=== PATIENT | female | born 1945 | race Caucasian/White ===

== ENCOUNTER → 2018-08-05 12:36 | Outpatient (CLI) | payer OTHER, SELFPAY ==
--- NOTE | 2018-08-05 | DI.MG.S_ITS ---
BILATERAL DIGITAL SCREENING MAMMOGRAM 3D/2D WITH CAD: 08/05/2018 CLINICAL: Routine screening. Family history of breast cancer. Comparison is made to exams dated: 06/25/2017 mammogram, 12/24/2014 mammogram, and 10/29/2013 mammogram - [facility]. The tissue of both breasts is heterogeneously dense. This may lower the sensitivity of mammography. Current study was also evaluated with a Computer Aided Detection (CAD) system. There are benign calcifications in both breasts. No significant masses, calcifications, or other findings are seen in either breast. There has been no significant interval change. IMPRESSION: There is no mammographic evidence of malignancy. A 1 year screening mammogram is recommended.(08/06/2019) This exam was interpreted at Station ID: [id number]. NOTE: For mammograms, a report in lay terms will be sent to the patient. Approximately 15% of breast malignancies will not be visualized mammographically. In the management of a palpable breast mass, a negative mammogram must not discourage biopsy of a clinically suspicious lesion. Electronically Signed By: Kathy ríos/neyda:08/05/2018 13:52:41 letter sent: Normal Exam ACR BI-RADS Category 2: Benign Finding(s) 3342F
== END ==
PROVIDERS: Visit Provider Physician Assistant
DX: Z12.31 Encounter for screening mammogram for malignant neoplasm of breast (principal); Z80.3 Family history of malignant neoplasm of breast
CPT/HCPCS: 77063; 77067

== ENCOUNTER → 2018-12-30 13:04 | Outpatient (CLI) | payer OTHER, SELFPAY ==
--- NOTE | 2018-12-30 | DI.CT.S_ITS ---
PROCEDURE: CT CHEST HIGH RESOLUTION INDICATIONS: INTERSTITIAL LUNG DISEASE TECHNIQUE: Noncontrast 1.0 and 5.0 mm thick contiguous axial sections from the pulmonary apex to the posterior costophrenic angles, with 7 mm thick coronal and sagittal MIP reformats. 1 mm thick dynamic expiratory images acquired through the upper, mid, and lower lungs. 1.0 mm thick axial sections acquired from the josiane to the posterior costophrenic angles in the prone end-inspiration position. For radiation dose reduction, the following was used: automated exposure control, adjustment of mA and/or kV according to patient size. COMPARISON: [facility], CT, CHEST/ABD/PEL WITHOUT CONTRAST, 12/08/2014, 10:37. [facility], CT, THORAX WITHOUT CONTRAST, 05/21/2013, 11:47. [facility], CR, CHEST 2 VIEW, 05/01/2013, 13:44. FINDINGS: Image quality: Excellent. Lungs: The pattern of severe emphysematous change through the lung parenchyma comprises pulmonary hyperexpansion and multiple blebs and bullae are highly worsened over time with reference to the prior to chest CT studies. The degree of groundglass alveolitis pattern within the lung parenchyma appears slightly less pronounced than on the comparison study from October 2015. There is, however, a persistent mild alveolitis pattern interspersed amongst the areas of emphysematous change, indicating a component of active lung disease likely is present over time. A pulmonary mass lesion is not seen. Bronchiectasis is not identified. Chronic bronchitis as indicated by mild prominence of the soft tissues along the borders of the bronchi is again seen. Pleura: No pleural effusions or pneumothorax. Mediastinum: Heart size is normal. No pericardial effusion. Thoracic aorta and central pulmonary arteries are normal in size. Esophagus is normal in caliber. Bones and chest wall: No suspicious bony lesions. No vertebral body compression fractures. Abdomen: Visualized upper abdominal solid organs and bowel loops appear normal. IMPRESSION: Mild interval worsening of extensive and severe emphysematous change which is comprised of both centrilobular emphysema and emphysematous blebs and bullae, with reference to the most recent comparison chest CT from 12/08/14. A generalized pattern of mild alveolar prominence is also superimposed, but slightly less pronounced than on the comparison study. 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 A pulmonary malignancy, however is not found. Chronic bronchitis without identified bronchiectasis appears present. The lung disease is severe and slowly progressive. Dictated by: Cleveland Smith M.D. on 12/30/2018 at 15:59 Approved by: Cleveland Smith M.D. on 12/30/2018 at 16:06
== END ==
PROVIDERS: Visit Provider Internal Medicine Critical Care Medicine
DX: J84.9 Interstitial pulmonary disease, unspecified (principal); J43.2 Centrilobular emphysema
CPT/HCPCS: 71250

== ENCOUNTER → 2019-08-14 10:52 | Outpatient (CLI) | payer OTHER, SELFPAY ==
--- NOTE | 2019-08-15 16:00 | PM.PFT.1 ---
Pulmonary Function Test Referral & Results Date Patient Seen: 08/14/19 Requesting provider: Naina Wade Results: The spirometry demonstrates an FVC of 2.50 L which is 90% of predicted. The FEV1 was measured at 1.57 L which is 76% of predicted. The FEV1/FVC ratio was 63 which is 84% of predicted. Following the administration of bronchodilator there was a 10% improvement in FEF 25-75% but otherwise no notable change. Lung volumes show an SVC of 2.82 L which is 104% of predicted. The diffusing capacity was measured at 3.43 which is 14% of predicted. No hemoglobin value was provided, so no correction for potential anemia could be made, if appropriate. The maximum voluntary ventilation was reduced Interpretation: This study demonstrates mild obstructive lung disease with some limited evidence of benefit following bronchodilator, particularly small airway flow based on improvement although minimal in FEF 25-75% There is a very severe reduction in diffusing capacity suggesting very significant disease at the capillary alveolar level to the point where patients likely hypoxic at times on room air Compared to PFTs performed in March 2017, current study is essentially unchanged
== END ==
PROVIDERS: Family Provider Physician Assistant; PCP Physician Assistant; Visit Provider Internal Medicine Critical Care Medicine
DX: J43.2 Centrilobular emphysema (principal); J98.8 Other specified respiratory disorders
CPT/HCPCS: 94060; 94726; 94729

== ENCOUNTER → 2019-08-21 11:26 | Outpatient (CLI) | payer OTHER, SELFPAY ==
--- NOTE | 2019-08-21 | DI.MG.S_ITS ---
BILATERAL DIGITAL SCREENING MAMMOGRAM 3D/2D WITH CAD: 08/21/2019 CLINICAL: Routine screening. Personal history of breast cancer. Comparison is made to exams dated: 08/05/2018 mammogram, 06/25/2017 mammogram, 12/24/2014 mammogram, and 10/29/2013 mammogram - [facility]. The tissue of both breasts is heterogeneously dense. This may lower the sensitivity of mammography. Current study was also evaluated with a Computer Aided Detection (CAD) system. There are benign post operative findings in the right breast. No significant masses, calcifications, or other findings are seen in either breast. There has been no significant interval change. IMPRESSION: There is no mammographic evidence of malignancy. A 1 year screening mammogram is recommended. This exam was interpreted at Station ID: [id number]. NOTE: For mammograms, a report in lay terms will be sent to the patient. Approximately 15% of breast malignancies will not be visualized mammographically. In the management of a palpable breast mass, a negative mammogram must not discourage biopsy of a clinically suspicious lesion. Electronically Signed By: Darrion palacios/neyda:08/21/2019 17:05:27 letter sent: Normal Exam ACR BI-RADS Category 2: Benign Finding(s) 3342F
== END ==
PROVIDERS: Family Provider Physician Assistant; PCP Physician Assistant; Visit Provider Physician Assistant
DX: Z12.31 Encounter for screening mammogram for malignant neoplasm of breast (principal); Z85.3 Personal history of malignant neoplasm of breast
CPT/HCPCS: 77063; 77067

== ENCOUNTER → 2019-10-23 19:48 | Outpatient (ROUT) | payer OTHER, SELFPAY ==
[2019-10-23 20:06] LABS: Add Manual Diff / Slide Review NO; Basophils Absolute Auto 100 /uL (0-100); Eosinophils Absolute Auto 100 /uL (0-450); Eosinophils Percent Auto 1.6 % (2-4); Hematocrit 37.5 % (36-46); Hemoglobin 12.7 g/dL (12.0-16.0); Lymphocytes Absolute Auto 800 /uL (1100-4500); Lymphocytes Percent Auto 13.4 % (25-40); Mean Corpuscular Hemoglobin 32.1 PG (26-34); Mean Corpuscular Volume 94.5 fL (80-100); Monocytes Absolute Auto 500 /uL (0-900); Monocytes Percent Auto 8.7 % (3-14); Neutrophils Absolute Auto 4600 /uL (1500-7000); Neutrophils Percent Auto 75.3 % (50-75); Platelet Count 255 X10^3/uL (150-400); Red Blood Cell Count 3.96 X10^6/uL (4.0-5.2); Red Cell Distribution Width 12.2 % (11.6-14.8); White Blood Cell Count 6.1 X10^3/uL (4.5-11.0)
[2019-10-23 20:12] LABS: Alanine Aminotransferase 12 IU/L (<35); Albumin 3.9 g/dL (3.5-5.0); Albumin Globulin Ratio 1.3 (1.0-2.8); Alkaline Phosphatase 56 U/L (38-126); Aspartate Aminotransferase 26 IU/L (14-36); Bilirubin Total 0.6 mg/dL (0.2-1.3); Blood Urea Nitrogen 14 mg/dL (7-17); Calcium 9.7 mg/dL (8.4-10.2); Carbon Dioxide 36 mmol/L (22-32); Chloride 98 mmol/L (98-107); Cholesterol 180 mg/dL (140-199); Estimated Glomerular Filt Rate > 60.0 mL/min (>60); Globulin 3.1 g/dL (1.7-4.1); Glucose 133 mg/dL (80-110); HDL Cholesterol 91 mg/dL (40-60); HEMOLYSIS < 15 (0-50); LDL Cholesterol Calculated 80 mg/dL (<100); Potassium 4.4 mmol/L (3.4-5.1); Sodium 138 mmol/L (137-145); Triglycerides 44 mg/dL (35-150)
[2019-10-23 20:27] LABS: Vitamin D 25 Hydroxy (D3) 37.5 ng/mL (30.0-100.0)
== END ==
PROVIDERS: Family Provider Physician Assistant; PCP Physician Assistant; Visit Provider Physician Assistant
DX: I27.0 Primary pulmonary hypertension (principal); J84.9 Interstitial pulmonary disease, unspecified; E03.9 Hypothyroidism, unspecified; E78.2 Mixed hyperlipidemia; E55.9 Vitamin D deficiency, unspecified; M81.0 Age-related osteoporosis without current pathological fracture
CPT/HCPCS: 80053; 80061; 82306; 84443; 85025

== ENCOUNTER → 2019-10-27 12:59 | Outpatient (CLI) | payer OTHER, SELFPAY | PROVIDERS: Family Provider Physician Assistant; PCP Physician Assistant; Visit Provider Physician Assistant | DX: M81.0 Age-related osteoporosis without current pathological fracture (principal); Z78.0 Asymptomatic menopausal state; E07.9 Disorder of thyroid, unspecified; Z85.3 Personal history of malignant neoplasm of breast; Z82.62 Family history of osteoporosis; Z87.891 Personal history of nicotine dependence | CPT/HCPCS: 77080 ==

== ENCOUNTER → 2020-01-09 12:50 | Outpatient (CLI) | payer MEDICARE, SELFPAY ==
[2020-01-09 13:44] LABS: Alanine Aminotransferase 13 IU/L (<35); Albumin 4.1 g/dL (3.5-5.0); Albumin Globulin Ratio 1.1 (1.0-2.8); Alkaline Phosphatase 63 U/L (38-126); Aspartate Aminotransferase 34 IU/L (14-36); Bilirubin Total 0.5 mg/dL (0.2-1.3); Blood Urea Nitrogen 10 mg/dL (7-17); Calcium 9.7 mg/dL (8.4-10.2); Carbon Dioxide 35 mmol/L (22-32); Chloride 98 mmol/L (98-107); Estimated Glomerular Filt Rate > 60.0 mL/min (>60); Globulin 3.6 g/dL (1.7-4.1); Glucose 110 mg/dL (80-110); HEMOLYSIS < 15 (0-50); Potassium 4.1 mmol/L (3.4-5.1); Sodium 139 mmol/L (137-145); Total Protein 7.7 g/dL (6.3-8.2)
== END ==
PROVIDERS: Family Provider Physician Assistant; PCP Physician Assistant; Referring Provider Physician Assistant; Visit Provider Physician Assistant
DX: M81.0 Age-related osteoporosis without current pathological fracture (principal)
CPT/HCPCS: 36415; 80053

== ENCOUNTER → 2020-07-11 09:55 | Outpatient (CLI) | payer MEDICARE, SELFPAY ==
[2020-07-13 01:41] LABS: COVID19 Sendout Not Detected (Not Detected)
== END ==
PROVIDERS: Family Provider Physician Assistant; PCP Physician Assistant; Visit Provider Physician Assistant
DX: R59.0 Localized enlarged lymph nodes (principal); R53.83 Other fatigue; Z11.59 Encounter for screening for other viral diseases
CPT/HCPCS: 87635

== ENCOUNTER → 2021-02-03 14:54 | Outpatient (ROUT) | payer OTHER, SELFPAY ==
[2021-02-03 16:03] LABS: Add Manual Diff / Slide Review NO; Basophils Absolute Auto 100 /uL (0-100); Eosinophils Absolute Auto 100 /uL (0-450); Eosinophils Percent Auto 2.2 % (2-4); Hematocrit 37.9 % (36-46); Hemoglobin 12.6 g/dL (12.0-16.0); Lymphocytes Absolute Auto 800 /uL (1100-4500); Lymphocytes Percent Auto 15.3 % (25-40); Mean Corpuscular HGB Conc 33.1 % (30-36); Mean Corpuscular Hemoglobin 31.7 PG (26-34); Mean Corpuscular Volume 95.5 fL (80-100); Monocytes Absolute Auto 400 /uL (0-900); Monocytes Percent Auto 6.8 % (3-14); Neutrophils Absolute Auto 4000 /uL (1500-7000); Neutrophils Percent Auto 74.7 % (50-75); Platelet Count 239 X10^3/uL (150-400); Red Blood Cell Count 3.97 X10^6/uL (4.0-5.2); Red Cell Distribution Width 12.2 % (11.6-14.8); White Blood Cell Count 5.3 X10^3/uL (4.5-11.0)
[2021-02-03 16:17] LABS: Alanine Aminotransferase 12 IU/L (<35); Albumin 3.9 g/dL (3.5-5.0); Albumin Globulin Ratio 1.3 (1.0-2.8); Alkaline Phosphatase 56 U/L (38-126); Aspartate Aminotransferase 26 IU/L (14-36); BUN Creatinine Ratio 17.3 (6-22); Bilirubin Total 0.5 mg/dL (0.2-1.3); Blood Urea Nitrogen 9 mg/dL (7-17); Calcium 9.6 mg/dL (8.4-10.2); Carbon Dioxide 34 mmol/L (22-32); Chloride 98 mmol/L (98-107); Cholesterol 175 mg/dL (140-199); Estimated Glomerular Filt Rate > 60.0 mL/min (>60); Globulin 2.9 g/dL (1.7-4.1); Glucose 171 mg/dL (80-110); HDL Cholesterol 99 mg/dL (40-60); HEMOLYSIS < 15 (0-50); LDL Cholesterol Calculated 66 mg/dL (<100); Potassium 4.2 mmol/L (3.4-5.1); Sodium 139 mmol/L (137-145); Total Protein 6.8 g/dL (6.3-8.2); Triglycerides 50 mg/dL (35-150)
[2021-02-03 16:43] LABS: TSH w/ Reflex to FT4 0.43 uIU/mL (0.47-4.68)
[2021-02-03 19:56] LABS: Free T4, Direct Thyroxine 1.85 ng/dL (0.78-2.19)
[2021-02-04 10:18] LABS: Hemoglobin A1C% w Est Avg Glu 5.3 % (4.0-6.0)
== END ==
PROVIDERS: Family Provider Physician Assistant; PCP Physician Assistant; Visit Provider Physician Assistant
DX: J44.9 Chronic obstructive pulmonary disease, unspecified (principal); E03.9 Hypothyroidism, unspecified; I27.0 Primary pulmonary hypertension; M81.0 Age-related osteoporosis without current pathological fracture; E78.2 Mixed hyperlipidemia
CPT/HCPCS: 80053; 80061; 82306; 83036; 84439; 84443; 85025

== ENCOUNTER 2021-12-19 10:58 | Emergency (ER) | payer OTHER, SELFPAY ==
[2021-12-19] VITALS (7 sets, daily range): BP systolic 120–184; BP diastolic 60–88; PULSE 95–101; TEMP 37.1; O2SAT 95–98; BMI 19.5
--- NOTE | 2021-12-19 12:08 | ED.SOB ---
HPI - SOB/Dyspnea General Chief Complaint: Shortness of Breath/Dyspnea Stated Complaint: copd Time Seen by Provider: 12/19/21 12:08 Source: patient Mode of arrival: EMS Limitations: no limitations History of Present Illness HPI Narrative: This is a pleasant 76-year-old female with history of COPD/emphysema although she follows with Pulmonary 3 you do have an [place] and is not on any inhalers and is on sildenafil and levothyroxine and had Lasix 20 mg and potassium chloride started 2 weeks ago. She is not familiar with a history of pulmonary hypertension but suspect that she has this. She is on nasal cannula O2 at 6 L with her constant tater 247. She has had increasing sensation of weakness, shortness of breath and swelling in her lower extremities which is new. She has had nausea for the past week and some upper thoracic back discomfort with exertion. Patient states she feels more short of breath when she exerts herself as well. She has had orthopnea chronically but it has been worsened lately. She has had some abdominal discomfort the past week but that has alleviated. She has had nausea but no vomiting. She has had some mild constipation but but having bowel movements. No new urinary changes. She noticed increasing swelling in her extremities a week ago Sunday which she has not had in the past. She did note she was at pulmonary rehab and exercising and got lightheaded at her last visit a week ago Sunday. Patient states she has had a polyp removed from her about 12 years ago. She quit smoking tobacco, no alcohol or illicit. She lives independently. She is accompanied by her friend who is her DPOA. She also arrives with her pulsed form which is full code unless she has a terminal diagnosis which was filled out with her pediatrics hospitalist Dr. Shipley from [facility]. Related Data Previous Rx's Medication Instructions Recorded furosemide 20 mg tablet (Lasix) 20 mg PO DAILY #3 tab 12/19/21 Allergies Allergy/AdvReac Type Severity Reaction Status Date / Time Penicillins Allergy Unknown Verified 07/11/20 10:48 Review of Systems Review of Systems ROS Unobtainable: All systems reviewed & are unremarkable except as noted in HPI and below Patient History Social History Smoking Status: Former smoker Smoking Status: Former smoker alcohol intake frequency: 0-2 drinks per day Substance Use Type: does not use Exam Narrative Exam Narrative: GENERAL: Alert and oriented x three, thin elderly female in mild distress. HEENT: Head normocephalic, atraumatic, EOMI, pupils reactive, face symmetric, moist mucous membranes NECK: Supple, full range of motion CARDIOVASCULAR: Regular rate and rhythm without murmurs, rubs or gallops. Mild JVD bilaterally. RESPIRATORY: Breath sounds decreased slightly left in comparison to right. No wheezes or rhonchi. Positive for crackles in the left anterior and posterior base and mid lung. Patient does not have any tachypnea. She speaks in full sentences. ABDOMEN: Soft, nontender. Nondistended. Normoactive bowel sounds all 4 quadrants. No guarding or rebound, rigidity, no mass : No CVA tenderness EXTREMITIES: Normal range of motion, no clubbing. 1+ bilateral lower extremity pedal and ankle edema. Neurovascularly intact. NEUROLOGICAL: Cranial nerves II through XII grossly intact. Moving all extremities SKIN: Warm, dry, no petechiae, no rashes or lesions. Initial Vital Signs Initial Vital Signs: Vital Signs Temperature 98.7 F 12/19/21 11:27 Pulse Rate 101 H 12/19/21 11:27 Blood Pressure 129/63 12/19/21 11:27 Course Orders Ordered: ED Orders 12/19/21 11:19 RT Consult Eval and Treat NOW 12/19/21 11:51 EKG-12 Lead Stat 12/19/21 12:17 COVID19 -Nasal swab/Pre-Proc Stat 12/19/21 12:28 Consult to Respiratory Therapy Evaluate & Treat 12/19/21 12:29 XR chest 1V Stat 12/19/21 12:41 Complete Blood Count AUTO DIFF Stat Comprehensive Metabolic Panel Stat Magnesium Stat NT-proBNP (BNP-Adult 18+) Stat Troponin & CK Cardiac Panel Stat 12/19/21 12:44 PTT [Partial Thromboplastin Time] Stat Prothrombin Time INR Stat 12/19/21 13:06 Lactate (Lactic Acid) Stat 12/19/21 13:19 CT chest w con Stat Discontinued Medications Furosemide (Furosemide 40 Mg/4 Ml Vial) 40 mg IV NOW ONE Stop: 12/19/21 12:29 Last Admin: 12/19/21 13:19 Dose: 40 mg Documented by: TOM Reevaluation(s) Reevaluation #1: Patient had urine output and is feeling improved and her breathing. We reviewed her labs and CT findings. I think she would benefit from thoracentesis from a diagnostic and therapeutic perspective. She is not in extremis at this point and discussed that they are happy to see her to perform this tomorrow as an outpatient or weakness her inpatient patient prefers to return home. I also spoke with Oncology she has concerning changes for malignancy and they are happy to see her as well. Patient and her friend at bedside who is also her DPOA are both aware of the current plan and if there is any road blocks tomorrow they can re-presented to the emergency department. Consultations Consultation #1: Dr. Recinos, no available to for thoracentesis today but they can do 1 outpatient or inpatient tomorrow at 1:30 p.m. Consultation #2: Dr. Colon with oncology is happy to see the patient. We discussed that patient is currently set up to have thoracentesis tomorrow with cytology. Vital Signs Vital signs: Vital Signs - 8 hr 12/19/21 11:27 12/19/21 14:48 12/19/21 14:49 Temperature 98.7 F Pulse Rate 101 H 101 H 99 H Blood Pressure 129/63 184/88 H Pulse Oximetry 95 98 12/19/21 14:54 12/19/21 15:00 12/19/21 15:30 Temperature Pulse Rate 99 H 97 H 99 H Blood Pressure 121/66 122/60 137/63 Pulse Oximetry 98 97 97 12/19/21 16:00 Temperature Pulse Rate 95 H Blood Pressure 120/64 Pulse Oximetry 97 MDM - SOB/Dyspnea Lab Data Result diagrams: 12/19/21 12:41 12/19/21 12:41 Labs: Lab Results 12/19/21 12/19/21 12/19/21 Range/Units 12:17 12:41 12:41 WBC 9.3 (4.5-11.0) X10^3/uL RBC 4.17 (4.0-5.2) X10^6/uL Hgb 13.0 (12.0-16.0) g/dL Hct 38.5 (36-46) % MCV 92.3 (80-100) fL MCH 31.1 (26-34) PG MCHC 33.6 (30-36) % RDW 12.4 (11.6-14.8) % Plt Count 328 (150-400) X10^3/uL Neut % (Auto) 88.0 H (50-75) % Lymph % (Auto) 3.3 L (25-40) % Hendricks % (Auto) 7.9 (3-14) % Eos % (Auto) 0.3 L (2-4) % Baso % (Auto) 0.5 (0-2) % Neut # (Auto) 8200 H (3191-5794) /uL Lymph # (Auto) 300 L (3926-5097) /uL Hendricks # (Auto) 700 (0-900) /uL Eos # (Auto) 0 (0-450) /uL Baso # (Auto) 0 (0-100) /uL PT (10.1-12.7) SECONDS INR (0.9-1.3) APTT (26.4-36.2) SECONDS Sodium (137-145) mmol/L Potassium (3.4-5.1) mmol/L Chloride (98-107) mmol/L Carbon Dioxide (22-32) mmol/L BUN (7-17) mg/dL Creatinine (0.52-1.04) mg/dL Estimated GFR (>60) mL/min BUN/Creatinine Ratio (6-22) Glucose (80-110) mg/dL Lactate (0.7-2.1) mmol/L Calcium (8.4-10.2) mg/dL Magnesium 1.9 (1.6-2.3) mg/dL Total Bilirubin (0.2-1.3) mg/dL AST (14-36) IU/L ALT (<35) IU/L Alkaline Phosphatase (38-126) U/L Total Creatine Kinase 41 (30-135) U/L CK-MB (CK-2) TNP CK-MB (CK-2) Rel Index TNP Troponin I < 0.012 (0.01-0.034) ng/mL NT-Pro-B Natriuret Pep 140 (<450) pg/mL Total Protein (6.3-8.2) g/dL Albumin (3.5-5.0) g/dL Globulin (1.7-4.1) g/dL Albumin/Globulin Ratio (1.0-2.8) SARS-CoV-2 (PCR) Negative (Negative) 12/19/21 12/19/21 12/19/21 Range/Units 12:41 12:44 13:06 WBC (4.5-11.0) X10^3/uL RBC (4.0-5.2) X10^6/uL Hgb (12.0-16.0) g/dL Hct (36-46) % MCV (80-100) fL MCH (26-34) PG MCHC (30-36) % RDW (11.6-14.8) % Plt Count (150-400) X10^3/uL Neut % (Auto) (50-75) % Lymph % (Auto) (25-40) % Hendricks % (Auto) (3-14) % Eos % (Auto) (2-4) % Baso % (Auto) (0-2) % Neut # (Auto) (3088-1685) /uL Lymph # (Auto) (1314-9792) /uL Hendricks # (Auto) (0-900) /uL Eos # (Auto) (0-450) /uL Baso # (Auto) (0-100) /uL PT 12.4 (10.1-12.7) SECONDS INR 1.1 (0.9-1.3) APTT 28 (26.4-36.2) SECONDS Sodium 134 L (137-145) mmol/L Potassium 4.5 (3.4-5.1) mmol/L Chloride 91 L (98-107) mmol/L Carbon Dioxide 41 H* (22-32) mmol/L BUN 12 (7-17) mg/dL Creatinine 0.38 L (0.52-1.04) mg/dL Estimated GFR > 60.0 (>60) mL/min BUN/Creatinine Ratio 31.6 H (6-22) Glucose 110 (80-110) mg/dL Lactate 1.3 (0.7-2.1) mmol/L Calcium 9.5 (8.4-10.2) mg/dL Magnesium (1.6-2.3) mg/dL Total Bilirubin 0.8 (0.2-1.3) mg/dL AST 35 (14-36) IU/L ALT 14 (<35) IU/L Alkaline Phosphatase 66 (38-126) U/L Total Creatine Kinase (30-135) U/L CK-MB (CK-2) CK-MB (CK-2) Rel Index Troponin I (0.01-0.034) ng/mL NT-Pro-B Natriuret Pep (<450) pg/mL Total Protein 7.6 (6.3-8.2) g/dL Albumin 3.7 (3.5-5.0) g/dL Globulin 3.9 (1.7-4.1) g/dL Albumin/Globulin Ratio 0.9 L (1.0-2.8) SARS-CoV-2 (PCR) (Negative) Imaging Data Chest x-ray: Radiologist's Impression: Launch?Image [address] [address] XRay Report Signed Patient: Amanda Murphy MR#: [id number] : 1945 Acct:[id number] Age/Sex: 76 / F Date of Service: 12/19/21 Loc: ED Accession Number: [id number] ?? Procedure: XR chest 1V Ordering Provider: Christy Garcia D.O. PROCEDURE:? XR CHEST 1V ? INDICATIONS:? SOB, swelling lower extremities, hx COPD/pulm htn ? TECHNIQUE:? One view of the chest was acquired.? ? COMPARISON:? [facility], , CHEST 2 VIEW, 05/01/2013, 13:44. ? FINDINGS:? ? Surgical changes and devices:? None.? ? Lungs and pleura:? Prominent lung volumes.? Fibrotic change.? Opacification of the right lower hemithorax.? Scattered opacity in the mid lung.? No pneumothorax seen.? Moderate right pleural effusion.? ? Mediastinum:? Mediastinal contours appear similar.? Heart size is within normal limits.? ? Bones and chest wall:? No suspicious bony lesions identified.? Scoliosis.? Overlying soft tissues appear unremarkable.? ? IMPRESSION:? Moderate right pleural effusion. ? Mild opacity in the right mid lung field. This could represent loculated effusion, pneumonia, or atelectasis.? ? Consider further evaluation with CT of the chest with IV contrast.? ? Dictated by: Rubens Perez M.D. on 12/19/2021 at 13:09 ? ? Approved by: Rubens Perez M.D. on 12/19/2021 at 13:15?? CT scan - chest: Radiologist's Impression: Launch?Image [address] [address] [address] Scan Report Signed Patient: Amanda Murphy MR#: [id number] : 1945 Acct:[id number] Age/Sex: 76 / F Date of Service: 12/19/21 Loc: ED Accession Number: [id number] ?? Procedure: CT chest w con Ordering Provider: Christy Garcia D.O. PROCEDURE:? CT CHEST W CON ? INDICATIONS:? pleural effusion, sob, swelling legs. ? TECHNIQUE:? After the administration of intravenous contrast, 5 mm thick sections acquired from the pulmonary apices to the posterior costophrenic angles.? 1 mm axial lung, 5 mm thick coronal and sagittal reformats and 7 mm axial MIP were acquired.? For radiation dose reduction, the following was used:? automated exposure control, adjustment of mA and/or kV according to patient size.? ? COMPARISON:? CT, CHEST/ABD/PEL WITHOUT CONTRAST, 12/08/2014, 10:37.? [facility], CT, CT CHEST HIGH RESOLUTION, 12/30/2018, 13:04.? [facility], CR, XR CHEST 1V, 12/19/2021, 12:42. ? FINDINGS:? Image quality:? Excellent.? ? Lungs and pleura:? Severe emphysematous changes are present throughout the lungs bilaterally.? The lungs are hyperexpanded with multiple areas of bleb and bulla lie demonstrating interval worsening since 2019. There is a moderate to large right pleural effusion with superimposed areas of enhancing soft tissue density both along the pleura as well as superimposed upon the effusion.? Several of these areas appear to be nodular in appearance.? Portions of the mediastinum are obscured secondary to infiltrating fluid. ?However, there does appear to be areas of underlying adenopathy with what appears to be a 2.0 cm subcarinal lymph node as well as a 1.4 cm right hilar lymph node.? No discrete endobronchial lesion is identified. ? Mediastinum:? Heart size is normal.? No pericardial effusion.? No mediastinal or hilar adenopathy by size criteria.? Thoracic aorta and central pulmonary arteries are normal in size.? Esophagus is normal in caliber.? No hiatal hernia.? ? Bones and chest wall:? No suspicious bony lesions.? No vertebral body compression fractures.? No axillary or supraclavicular adenopathy by size criteria.? Thyroid gland is not visualized .? ? Abdomen:? There are multiple low-attenuation enhancing hepatic masses the largest in the left lobe measuring 2.0 x 2.1 cm on series 2, image 53. Visualized upper abdominal solid organs appear normal.? Upper abdominal bowel loops are normal in caliber.? ? IMPRESSION:? ? Moderate to large right effusion with superimposed areas of enhancing soft tissue density.? While the latter could represent areas of airspace disease such as pneumonia and/or atelectasis, the somewhat nodular heterogeneously enhancing appearance raises concern for soft tissue masses secondary to malignancy.? In addition, hilar mediastinal adenopathy is present, raising concern for malignancy. ? ? Multiple incompletely visualized hepatic lesions as described above.? In conjunction with pulmonary findings, overall appearance is highly concerning for malignancy.? ? Dictated by: Annie Garcia M.D. on 12/19/2021 at 14:16 ? ? Approved by: Annie Garcia M.D. on 12/19/2021 at 14:37? ECG Data Attestation: I personally reviewed and interpreted this ECG as follows: Prior ECG tracings: not available for review Interpretation: Sinus rhythm rate of 94, OK 140 QRS of 76 and QTC of 435. No acute ST elevation or depression appreciated. No priors for comparison. MDM Narrative Medical decision making narrative: This is a pleasant 76-year-old female with history of COPD and suspected pulmonary hypertension as she is on sildenafil daily, Lasix, potassium. Patient's chest x-ray shows possible pleural effusion, her BNP is elevated but her troponin is negative, she does not appear to have infectious changes with her COVID swab. She is not requiring increasing oxygen above her normal requirements with her home O2 and her vitals are otherwise stable. CT chest was obtained with IV contrast and found to have a large pleural effusion with changes concerning for possible malignancy with mediastinal lymphadenopathy, possible soft tissue mass as well as potential lesions in the liver. This was all discussed with the patient. She has been set for outpatient thoracentesis tomorrow at 1:30 p.m. to have a diagnostic and therapeutic tap. She did have some relief with Lasix here and was instructed to take 3-in all days worth of Lasix. Return precautions were discussed. Case was also discussed with oncology was happy to follow with the patient. Discharge Plan Departure Patient Disposition: Home Clinical Impression: Pleural effusion, Liver masses, Mediastinal adenopathy Instructions: Pleural Effusion Activity Restrictions/Additional Instructions: Follow up tomorrow with diagnostic radiology for a ultrasound guided thoracentesis. Please check in by 1:10pm tomorrow and plan is for thoracentesis at 1:30pm tomorrow. This is a diagnostic therapeutic procedure to obtain more information about the fluid but also help your breathing. I spoke with oncology today they are happy to follow up with you and ask that you contact the office tomorrow to set up follow-up in the coming week. Your imaging shows a pleural effusion or fluid collection but also enlarged lymph nodes and areas concerning for possible mass your mediastinum, chest and liver. Please follow-up with oncology as well regarding these results and your primary care physician. Take two tablet so your lasix daily in the morning x 3 days then return to your normal dose. Please return for fevers new or worsening chest pain, shortness of breath, increasing swelling in your extremities or other new or concerning symptoms Prescriptions: New furosemide [Lasix] 20 mg tablet 20 mg PO DAILY Qty: 3 0RF Referrals: Elo Villeda PA-C [Primary Care Provider] - Cris Colon MD [Physician] -
--- NOTE | 2021-12-19 12:29 | DI.RAD.S_ITS ---
PROCEDURE: XR CHEST 1V INDICATIONS: SOB, swelling lower extremities, hx COPD/pulm htn TECHNIQUE: One view of the chest was acquired. COMPARISON: [facility], , CHEST 2 VIEW, 05/01/2013, 13:44. FINDINGS: Surgical changes and devices: None. Lungs and pleura: Prominent lung volumes. Fibrotic change. Opacification of the right lower hemithorax. Scattered opacity in the mid lung. No pneumothorax seen. Moderate right pleural effusion. Mediastinum: Mediastinal contours appear similar. Heart size is within normal limits. Bones and chest wall: No suspicious bony lesions identified. Scoliosis. Overlying soft tissues appear unremarkable. IMPRESSION: Moderate right pleural effusion. Mild opacity in the right mid lung field. This could represent loculated effusion, pneumonia, or atelectasis. Consider further evaluation with CT of the chest with IV contrast. Dictated by: Rubens Perez M.D. on 12/19/2021 at 13:09 Approved by: Rubens Perez M.D. on 12/19/2021 at 13:15
[2021-12-19 12:56] LABS: Add Manual Diff / Slide Review NO; Basophils Absolute Auto 0 /uL (0-100); Basophils Percent Auto 0.5 % (0-2); Eosinophils Absolute Auto 0 /uL (0-450); Eosinophils Percent Auto 0.3 % (2-4); Hematocrit 38.5 % (36-46); Lymphocytes Absolute Auto 300 /uL (1100-4500); Lymphocytes Percent Auto 3.3 % (25-40); Mean Corpuscular HGB Conc 33.6 % (30-36); Mean Corpuscular Hemoglobin 31.1 PG (26-34); Mean Corpuscular Volume 92.3 fL (80-100); Monocytes Absolute Auto 700 /uL (0-900); Monocytes Percent Auto 7.9 % (3-14); Neutrophils Absolute Auto 8200 /uL (1500-7000); Platelet Count 328 X10^3/uL (150-400); Red Blood Cell Count 4.17 X10^6/uL (4.0-5.2); Red Cell Distribution Width 12.4 % (11.6-14.8); White Blood Cell Count 9.3 X10^3/uL (4.5-11.0)
[2021-12-19 13:07] LABS: Alanine Aminotransferase 14 IU/L (<35); Albumin 3.7 g/dL (3.5-5.0); Albumin Globulin Ratio 0.9 (1.0-2.8); Alkaline Phosphatase 66 U/L (38-126); Aspartate Aminotransferase 35 IU/L (14-36); BUN Creatinine Ratio 31.6 (6-22); Bilirubin Total 0.8 mg/dL (0.2-1.3); Blood Urea Nitrogen 12 mg/dL (7-17); Calcium 9.5 mg/dL (8.4-10.2); Chloride 91 mmol/L (98-107); Creatine Kinase 41 U/L (30-135); Estimated Glomerular Filt Rate > 60.0 mL/min (>60); Globulin 3.9 g/dL (1.7-4.1); Glucose 110 mg/dL (80-110); Magnesium 1.9 mg/dL (1.6-2.3); Sodium 134 mmol/L (137-145); Total Protein 7.6 g/dL (6.3-8.2)
[2021-12-19 13:19] LABS: NT-proBNP (BNP-Adult 18+) 140 pg/mL (<450); Troponin I < 0.012 ng/mL (0.01-0.034)
[2021-12-19] MEDS: FUROSEMIDE 40 MG/4 ML VIAL IV (13:19)
--- NOTE | 2021-12-19 13:19 | DI.CT.S_ITS ---
PROCEDURE: CT CHEST W CON INDICATIONS: pleural effusion, sob, swelling legs. TECHNIQUE: After the administration of intravenous contrast, 5 mm thick sections acquired from the pulmonary apices to the posterior costophrenic angles. 1 mm axial lung, 5 mm thick coronal and sagittal reformats and 7 mm axial MIP were acquired. For radiation dose reduction, the following was used: automated exposure control, adjustment of mA and/or kV according to patient size. COMPARISON: CT, CHEST/ABD/PEL WITHOUT CONTRAST, 12/08/2014, 10:37. [facility], CT, CT CHEST HIGH RESOLUTION, 12/30/2018, 13:04. [facility], CR, XR CHEST 1V, 12/19/2021, 12:42. FINDINGS: Image quality: Excellent. Lungs and pleura: Severe emphysematous changes are present throughout the lungs bilaterally. The lungs are hyperexpanded with multiple areas of bleb and bulla lie demonstrating interval worsening since 2019. There is a moderate to large right pleural effusion with superimposed areas of enhancing soft tissue density both along the pleura as well as superimposed upon the effusion. Several of these areas appear to be nodular in appearance. Portions of the mediastinum are obscured secondary to infiltrating fluid. However, there does appear to be areas of underlying adenopathy with what appears to be a 2.0 cm subcarinal lymph node as well as a 1.4 cm right hilar lymph node. No discrete endobronchial lesion is identified. Mediastinum: Heart size is normal. No pericardial effusion. No mediastinal or hilar adenopathy by size criteria. Thoracic aorta and central pulmonary arteries are normal in size. Esophagus is normal in caliber. No hiatal hernia. Bones and chest wall: No suspicious bony lesions. No vertebral body compression fractures. No axillary or supraclavicular adenopathy by size criteria. Thyroid gland is not visualized . Abdomen: There are multiple low-attenuation enhancing hepatic masses the largest in the left lobe measuring 2.0 x 2.1 cm on series 2, image 53. Visualized upper abdominal solid organs appear normal. Upper abdominal bowel loops are normal in caliber. IMPRESSION: Moderate to large right effusion with superimposed areas of enhancing soft tissue density. While the latter could represent areas of airspace disease such as pneumonia and/or atelectasis, the somewhat nodular heterogeneously enhancing appearance raises concern for soft tissue masses secondary to malignancy. In addition, hilar mediastinal adenopathy is present, raising concern for malignancy. Multiple incompletely visualized hepatic lesions as described above. In conjunction with pulmonary findings, overall appearance is highly concerning for malignancy. Dictated by: Annie Garcia M.D. on 12/19/2021 at 14:16 Approved by: Annie Garcia M.D. on 12/19/2021 at 14:37
[2021-12-19 13:34] LABS: COVID19 -Nasal RAPID Negative (Negative)
[2021-12-19 13:38] LABS: HEMOLYSIS 90 (0-50)
[2021-12-19 13:41] LABS: Carbon Dioxide 41 mmol/L (22-32); Potassium 4.5 mmol/L (3.4-5.1)
[2021-12-19 13:41] LABS: Lactate (Lactic Acid) 1.3 mmol/L (0.7-2.1)
[2021-12-19 15:14] LABS: INR 1.1 (0.9-1.3); Prothrombin Time 12.4 SECONDS (10.1-12.7)
[2021-12-19 15:17] LABS: PTT Partial Thromboplastin Tim 28 SECONDS (26.4-36.2)
== END 2021-12-19 16:50 | disposition home or self-care (01) ==
PROVIDERS: Emergency Provider Emergency Medicine; Family Provider Physician Assistant; PCP Physician Assistant
DX: J90 Pleural effusion, not elsewhere classified (principal); R16.0 Hepatomegaly, not elsewhere classified; R59.0 Localized enlarged lymph nodes; Z87.891 Personal history of nicotine dependence; Z79.899 Other long term (current) drug therapy; Z20.822 Contact with and (suspected) exposure to COVID-19
CPT/HCPCS: 36415; 71045; 71260; 80053; 82550; 83605; 83735; 83880; 84484; 85025; 85610; 85730; 87635; 93005; 93010; 96374; 99284; 99285; C9803; J1940; Q9967

== ENCOUNTER → 2021-12-20 13:11 | Outpatient (CLI) | payer OTHER, SELFPAY ==
--- NOTE | 2021-12-20 | DI.US.S_ITS ---
PROCEDURE: US THORACENTESIS INDICATIONS: PLEURAL EFFUSION TECHNIQUE: The indications, alternatives, benefits, risks, and complications of the procedure were explained to the patient. Written informed consent was obtained and placed in the chart. The chest was examined sonographically, and an appropriate site was chosen for thoracentesis. The skin was prepared and draped in the usual sterile fashion, and 1% lidocaine was infiltrated from the skin down through the pleural surface. A 19-gauge catheter-covered needle was then introduced into the pleural space, the catheter was advanced and the needle was withdrawn, and thereafter pleural fluid was aspirated. The catheter was then removed and a dressing was applied. COMPARISON: [facility], CR, XR CHEST 1V, 12/20/2021, 13:49. [facility], CT, CT CHEST W CON, 12/19/2021, 14:03. FINDINGS: Access site: Right hemithorax. Needle: One-Step centesis catheter with introducer needle. Fluid volume and description: 1500 mL; bloody. Fluid sent for diagnostic testing: yes; per referring physician. Medications: 1% lidocaine for local anaesthesia. Complications: None; post-procedural chest radiograph is pending to assess for pneumothorax. IMPRESSION: Successful ultrasound-guided thoracentesis. Dictated by: Avtar Lopez M.D. on 12/20/2021 at 16:45 Approved by: Avtar Lopez M.D. on 12/20/2021 at 16:46
--- NOTE | 2021-12-20 | PATH_ITS ---
Note [facility] Accession Number: [id number] TESTS RESULT FLAG UNITS REF RANGE LAB Clinician Provided Cytology Information No. of containers..01 Other (Miscellaneous) Source: [A] 01 R PLEURAL EFFUSION DIAGNOSIS: [A] 01 R PLEURAL EFFUSION POSITIVE FOR MALIGNANT CELLS; SEE COMMENT. THIS INTERPRETATION INCLUDES EVALUATION OF A CELL BLOCK. COMMENT: A panel of immunostains will be performed to further characterize the malignant cells and potentially determine the primary site. Those results and the final diagnosis will be reported in an addendum. Pathologist ICD10: 01 J90 Signed out by: Kamilla Tompkins MD, Pathologist NPI- [id number] Performed by: Kal Jordan, Supervisor [employer] ([facility]) Gross description: 60 CC, RED, CLOUDY /LCS 12/21/2021 2328 Local FLAG LEGEND: L-Low Normal,H-High Normal,LL-Alert Low,HH-Alert High <-Panic Low,>-Panic High,A-Abnormal,AA-Critical Abnormal Performed at: 01 =[facility] [address], [place] [address] Efrain Mejia MD, Performed at: 01 [facility] [address], [place], [place] [id number] MD Efrain Mejia MD Phone: [phone]
--- NOTE | 2021-12-20 | DI.RAD.S_ITS ---
PROCEDURE: XR CHEST 1V INDICATIONS: post thoracentesis TECHNIQUE: One view of the chest was acquired. COMPARISON: [facility], CT, CT CHEST W CON, 12/19/2021, 14:03. [facility], CR, XR CHEST 1V, 12/19/2021, 12:42. FINDINGS: Surgical changes and devices: None. Lungs and pleura: No pneumothorax. Small residual right pneumothorax. Extensive interstitial thickening and pulmonary fibrosis. Mediastinum: Mediastinal contours appear normal. Heart size is normal. Bones and chest wall: No suspicious bony lesions. Overlying soft tissues appear unremarkable. Cirrhosis. IMPRESSION: No pneumothorax post thoracentesis. Dictated by: Avtar Lopez M.D. on 12/20/2021 at 14:07 Approved by: Avtar Lopez M.D. on 12/20/2021 at 14:09
[2021-12-20 14:32] LABS: Body Fluid Red Blood Cells 11020 /uL; Body Fluid Tot Nucleated Cells 843 /uL; Glucose Body Fluid 135 mg/dL; LDH Body Fluid 718 U/L; Total Protein Body Fluid 4.5 g/dL
[2021-12-20 14:45] LABS: pH Body Fluid 8 pH
[2021-12-20 14:55] LABS: Body Fluid Appearance SLIGHTLY CLOUDY; Body Fluid Clotted? NO CLOTS PRESENT; Body Fluid Color XANTHOCHROMIC; Eosinophils Body Fluid 0 %; Mononuclear WBC Body Fluid 79 %; Other Cells Body Fluid 7 %; Polynuclear WBC Body Fluid 14 %
== END ==
PROVIDERS: Family Provider Physician Assistant; PCP Physician Assistant; Referring Provider Emergency Medicine; Visit Provider Emergency Medicine
DX: J90 Pleural effusion, not elsewhere classified
CPT/HCPCS: 32555; 71045; 82945; 83615; 83986; 84157; 87070; 87075; 87205; 89051

== ENCOUNTER 2021-12-24 12:53 | Emergency (ER) | payer OTHER, SELFPAY ==
[2021-12-24] VITALS (15 sets, daily range): BP systolic 136–161; BP diastolic 62–78; PULSE 89–104; RESP 20–29; TEMP 36.6; O2SAT 93–100
--- NOTE | 2021-12-24 12:58 | DI.RAD.S_ITS ---
PROCEDURE: XR CHEST 1V INDICATIONS: chest pain TECHNIQUE: One view of the chest was acquired. COMPARISON: [facility], CR, XR CHEST 1V, 12/20/2021, 13:49. FINDINGS: Surgical changes and devices: None. Lungs and pleura: Diffuse chronic reticular changes noted throughout both lungs. There is obscuration right hemidiaphragm with blunting of the costophrenic angle. Underlying pulmonary infiltrate noted the right long as well with volume loss. Mediastinum: Mediastinal contours appear normal. Heart size is normal. Bones and chest wall: Generalized decrease in osseous mineralization noted. Convex right thoracic scoliosis present. IMPRESSION: 1. Right pleural effusion with right basilar atelectasis and or infiltrate, increased from the prior. 2. Diffuse underlying chronic fibrotic change involves both lungs Approved by: Adolfo Tyson M.D. on 12/24/2021 at 13:09
[2021-12-24 13:27] LABS: Add Manual Diff / Slide Review NO; Basophils Absolute Auto 0 /uL (0-100); Basophils Percent Auto 0.1 % (0-2); Eosinophils Absolute Auto 100 /uL (0-450); Eosinophils Percent Auto 0.7 % (2-4); Hematocrit 40.2 % (36-46); Hemoglobin 13.5 g/dL (12.0-16.0); Lymphocytes Absolute Auto 300 /uL (1100-4500); Lymphocytes Percent Auto 2.9 % (25-40); Mean Corpuscular HGB Conc 33.5 % (30-36); Mean Corpuscular Hemoglobin 30.8 PG (26-34); Mean Corpuscular Volume 91.8 fL (80-100); Monocytes Absolute Auto 900 /uL (0-900); Monocytes Percent Auto 8.4 % (3-14); Neutrophils Absolute Auto 9900 /uL (1500-7000); Neutrophils Percent Auto 87.9 % (50-75); Platelet Count 352 X10^3/uL (150-400); Red Blood Cell Count 4.38 X10^6/uL (4.0-5.2); Red Cell Distribution Width 12.5 % (11.6-14.8); White Blood Cell Count 11.2 X10^3/uL (4.5-11.0)
[2021-12-24 13:45] LABS: COVID19 -Nasal RAPID Negative (Negative)
--- NOTE | 2021-12-24 14:25 | ED.SOB ---
HPI - SOB/Dyspnea General Chief Complaint: Weakness Stated Complaint: failure to thrive Time Seen by Provider: 12/24/21 13:14 Source: patient and EMS Mode of arrival: EMS Limitations: no limitations History of Present Illness HPI Narrative: Patient is a 76-year-old female with history of COPD emphysema, suspected pulmonary hypertension on sildenafil, followed by pulmonology at [facility] recently found to have a large right-sided pleural effusion. She was seen evaluated in the emergency department December 19 she had a thoracentesis, report does show malignant cells. For the last few days she has had nothing to drink loss of appetite. She is on home oxygen. She has she says she gets up to move around she least 6 L however at rest it can be less. He generally feels weak and run down. She has been set up Oncology Related Data Previous Rx's Medication Instructions Recorded furosemide 20 mg tablet (Lasix) 20 mg PO DAILY #3 tab 12/19/21 Allergies Allergy/AdvReac Type Severity Reaction Status Date / Time Penicillins Allergy Unknown Verified 07/11/20 10:48 Review of Systems Review of Systems ROS Unobtainable: All systems reviewed & are unremarkable except as noted in HPI and below Constitutional Constitutional: Reports fatigue, Denies fever(s) and Reports poor appetite Eyes Eyes: Denies blurry vision ENT Ears, Nose, Mouth, and Throat: Denies vertigo, Denies dizziness and Reports neck pain Cardiovascular Cardiovascular: Denies chest pain, Reports dyspnea and Reports dyspnea on exertion Respiratory Respiratory: Reports as per HPI, Reports dyspnea and Reports dyspnea on exertion Gastrointestinal Gastrointestinal: Denies abdominal pain, Denies nausea and Denies vomiting Genitourinary Genitourinary: Denies urinary incontinence and Denies urinary hesitancy Musculoskeletal Musculoskeletal: Reports neck pain Integumentary/Breasts Skin/Breast: Denies rash Neurologic Neurologic: Denies vertigo, Denies dizziness and Denies other visual disturbances Endocrine Endocrine: Reports fatigue Patient History Medical History (Updated 12/24/21 @ 19:36 by Kristyn Collins DO) Breast cancer Pleural effusion Pulmonary hypertension Social History Smoking Status: Former smoker Smoking Status: Former smoker alcohol intake frequency: 0-2 drinks per day Substance Use Type: does not use Exam Initial Vital Signs Initial Vital Signs: Vital Signs Temperature 98 F 12/24/21 12:58 Pulse Rate 90 12/24/21 12:58 Respiratory Rate 24 12/24/21 12:58 Blood Pressure 137/62 12/24/21 12:58 Pulse Oximetry 98 12/24/21 12:58 GENERAL: Thin week 76-year-old femaleand in no acute distress. HEENT: Head atraumatic,EOMI, pupils reactive, face symmetric, moist mucous membranes CARDIOVASCULAR: Regular rate and rhythm without murmurs, rubs or gallops. RESPIRATORY: Significantly decreased breath sounds on right no tachypnea no wheezing rales or rhonchi ABDOMEN: Soft, nontender. Normoactive bowel sounds all 4 quadrants. No guarding or rebound. EXTREMITIES: Normal range of motion, no clubbing. +1 pitting edema Neurovascularly intact NEUROLOGICAL: Alert and oriented x4.Normal gait and speech. SKIN: Warm, dry, no laceration, no petechiae, no rashes or lesions. Course Orders Ordered: ED Orders 12/24/21 12:58 XR chest 1V Stat EKG-12 Lead Stat 12/24/21 12:59 COVID19 -Nasal swab/Pre-Proc Stat 12/24/21 13:19 Complete Blood Count AUTO DIFF Stat 12/24/21 13:50 Comprehensive Metabolic Panel Stat Lipase Stat Magnesium Stat NT-proBNP (BNP-Adult 18+) Stat Troponin & CK Cardiac Panel Stat 12/24/21 15:35 CT angio chest PE protocol Stat Vital Signs Vital signs: Vital Signs - 8 hr 12/24/21 12:58 12/24/21 13:05 12/24/21 13:30 Temperature 98 F Pulse Rate 90 91 H 91 H Respiratory Rate 24 24 Blood Pressure 137/62 Pulse Oximetry 98 97 99 12/24/21 14:00 12/24/21 14:03 12/24/21 14:30 Temperature Pulse Rate 91 H 89 97 H Respiratory Rate 20 Blood Pressure 146/70 H Pulse Oximetry 98 98 93 12/24/21 14:32 12/24/21 14:56 12/24/21 15:00 Temperature Pulse Rate 91 H 91 H 91 H Respiratory Rate 25 H 25 H Blood Pressure 161/78 H 152/70 H Pulse Oximetry 98 100 99 12/24/21 15:30 12/24/21 16:00 12/24/21 16:30 Temperature Pulse Rate 92 H 102 H 92 H Respiratory Rate 29 H Blood Pressure Pulse Oximetry 100 100 12/24/21 17:00 12/24/21 17:30 12/24/21 17:31 Temperature Pulse Rate 98 H 104 H Respiratory Rate Blood Pressure 136/69 Pulse Oximetry 100 98 MDM - SOB/Dyspnea Lab Data Result diagrams: 12/24/21 13:19 12/24/21 13:50 Labs: Lab Results 12/24/21 12/24/21 12/24/21 Range/Units 12:59 13:19 13:50 WBC 11.2 H (4.5-11.0) X10^3/uL RBC 4.38 (4.0-5.2) X10^6/uL Hgb 13.5 (12.0-16.0) g/dL Hct 40.2 (36-46) % MCV 91.8 (80-100) fL MCH 30.8 (26-34) PG MCHC 33.5 (30-36) % RDW 12.5 (11.6-14.8) % Plt Count 352 (150-400) X10^3/uL Neut % (Auto) 87.9 H (50-75) % Lymph % (Auto) 2.9 L (25-40) % [place] % (Auto) 8.4 (3-14) % Eos % (Auto) 0.7 L (2-4) % Baso % (Auto) 0.1 (0-2) % Neut # (Auto) 9900 H (3463-8389) /uL Lymph # (Auto) 300 L (8287-3413) /uL [place] # (Auto) 900 (0-900) /uL Eos # (Auto) 100 (0-450) /uL Baso # (Auto) 0 (0-100) /uL Sodium 128 L (137-145) mmol/L Potassium 4.1 (3.4-5.1) mmol/L Chloride 81 L (98-107) mmol/L Carbon Dioxide 46 H* (22-32) mmol/L BUN 10 (7-17) mg/dL Creatinine 0.44 L (0.52-1.04) mg/dL Estimated GFR > 60.0 (>60) mL/min BUN/Creatinine Ratio 22.7 H (6-22) Glucose 112 H (80-110) mg/dL Calcium 9.1 (8.4-10.2) mg/dL Magnesium 1.8 (1.6-2.3) mg/dL Total Bilirubin 0.7 (0.2-1.3) mg/dL AST 29 (14-36) IU/L ALT 14 (<35) IU/L Alkaline Phosphatase 65 (38-126) U/L Total Creatine Kinase 25 L (30-135) U/L CK-MB (CK-2) TNP CK-MB (CK-2) Rel Index TNP Troponin I < 0.012 (0.01-0.034) ng/mL NT-Pro-B Natriuret Pep (<450) pg/mL Total Protein 6.4 (6.3-8.2) g/dL Albumin 3.2 L (3.5-5.0) g/dL Globulin 3.2 (1.7-4.1) g/dL Albumin/Globulin Ratio 1.0 (1.0-2.8) Lipase 39 (23-300) U/L SARS-CoV-2 (PCR) Negative (Negative) 12/24/21 Range/Units 13:50 WBC (4.5-11.0) X10^3/uL RBC (4.0-5.2) X10^6/uL Hgb (12.0-16.0) g/dL Hct (36-46) % MCV (80-100) fL MCH (26-34) PG MCHC (30-36) % RDW (11.6-14.8) % Plt Count (150-400) X10^3/uL Neut % (Auto) (50-75) % Lymph % (Auto) (25-40) % [place] % (Auto) (3-14) % Eos % (Auto) (2-4) % Baso % (Auto) (0-2) % Neut # (Auto) (8896-7574) /uL Lymph # (Auto) (0094-4118) /uL [place] # (Auto) (0-900) /uL Eos # (Auto) (0-450) /uL Baso # (Auto) (0-100) /uL Sodium (137-145) mmol/L Potassium (3.4-5.1) mmol/L Chloride (98-107) mmol/L Carbon Dioxide (22-32) mmol/L BUN (7-17) mg/dL Creatinine (0.52-1.04) mg/dL Estimated GFR (>60) mL/min BUN/Creatinine Ratio (6-22) Glucose (80-110) mg/dL Calcium (8.4-10.2) mg/dL Magnesium (1.6-2.3) mg/dL Total Bilirubin (0.2-1.3) mg/dL AST (14-36) IU/L ALT (<35) IU/L Alkaline Phosphatase (38-126) U/L Total Creatine Kinase (30-135) U/L CK-MB (CK-2) CK-MB (CK-2) Rel Index Troponin I (0.01-0.034) ng/mL NT-Pro-B Natriuret Pep 156 (<450) pg/mL Total Protein (6.3-8.2) g/dL Albumin (3.5-5.0) g/dL Globulin (1.7-4.1) g/dL Albumin/Globulin Ratio (1.0-2.8) Lipase (23-300) U/L SARS-CoV-2 (PCR) (Negative) Urine Dip Bedside Urine Glucose Negative Bedside Urine Bilirubin - Negative Bedside Urine Ketone +/- 5 Urine Specific [place] 1.015 Bedside Urine Occult Blood - Negative Bedside Urine pH 6.5 Bedside Urine Protein - Negative Bedside Urine Urobilinogen - Negative Bedside Urine Nitrite - Negative Bedside Urine Leukocytes - Negative Esterase Imaging Data Chest x-ray: Radiologist's Impression: PROCEDURE:? XR CHEST 1V ? INDICATIONS:? chest pain ? TECHNIQUE:? One view of the chest was acquired.? ? COMPARISON:? [facility], CR, XR CHEST 1V, 12/20/2021, 13:49. ? FINDINGS:? ? Surgical changes and devices:? None.? ? Lungs and pleura:? Diffuse chronic reticular changes noted throughout both lungs. There is obscuration right hemidiaphragm with blunting of the costophrenic angle.? Underlying pulmonary infiltrate noted the right long as well with volume loss. ? Mediastinum:? Mediastinal contours appear normal.? Heart size is normal.? ? Bones and chest wall:? Generalized decrease in osseous mineralization noted.? Convex right thoracic scoliosis present. ? IMPRESSION:? ? 1. Right pleural effusion with right basilar atelectasis and or infiltrate, increased from the prior. 2. Diffuse underlying chronic fibrotic change involves both lungs ? ? ? Approved by: Adolfo Tyson M.D. on 12/24/2021 at 13:09? CT scan - chest: Radiologist's Impression: PROCEDURE:? CT ANGIO CHEST PE PROTOCOL ? INDICATIONS:? hypoxia, new cancer, prior effusions ? TECHNIQUE:? Helical axial CT of the chest was obtained after intravenous contrast injection utilizing an angiographic technique and reformatted in multiple planes.? Automated exposure control and/or adjustment of the dose parameters according to patient's size was utilized for radiation dose reduction. ? COMPARISON:? [facility], CT, CT CHEST W CON, 12/19/2021, 14:03. ? FINDINGS:? Image quality:? Excellent.? ? Pulmonary arteries:? Pulmonary arteries are normal in size, and demonstrate no intraluminal filling defects to suggest central pulmonary embolism.? ? Lungs and pleura:? Severe emphysematous changes again noted with multiple blebs and bulla.? Moderate to large right pleural effusion with enhancing rind of soft tissue along the pleura with nodularity. ? Mediastinum:? Heart size is normal, without pericardial effusion.? Right hilar and mediastinal adenopathy remains unchanged.? Thoracic aorta is normal in caliber and enhancement.? Esophagus is normal in caliber, without hiatal hernia.? ? Bones and chest wall:? No suspicious bony lesions.? Ribs and thoracic spine appear intact throughout.? Thyroid gland unremarkable.? No axillary or supraclavicular adenopathy.? ? Abdomen:? Several hypoenhancing hepatic metastatic lesions again noted. ? IMPRESSION:? ? 1. No evidence of pulmonary embolism, aortic dissection or aneurysm ? 2. Moderate to large right pleural effusion with enhancing rind of pleural based nodular soft tissue, most compatible with malignancy.? Hilar and mediastinal adenopathy stable. ? 3. Metastatic hepatic lesions also stable? Approved by: Adolfo Tyson M.D. on 12/24/2021 at 15:58? ECG Data Interpretation: Normal sinus rhythm rate 86 IN interval 202 QRS 88 QTC 418 MDM Narrative Medical decision making narrative: Initially when patient 1st arrived oxygen is note is 79-85% while resting oxygen quickly comes up. Blood work today is overall reassuring slightly high bicarb. Concern today was that she is not eating or drinking enough. She is urinating. Her friend thought she was weaker than normal. She is being referred to Oncology. Cytology from thoracentesis does show malignant cells. I have informed patient of this. At this time she does not meet admission criteria. She has oxygen at home blood work looks relatively stable. Patient has oxygen at. She decent is she over the last few days which are possible. We discussed how she should try to increase to drink fluids and stay hydrated. No significant sign of for 20 dehydration. She is she understands. At this time she will go home and have outpatient follow-up. Discharge Plan Departure Patient Disposition: Home Clinical Impression: Pleural effusion Instructions: Pleural Effusion, [id number] Activity Restrictions/Additional Instructions: *You have been diagnosed with pleural effusion *What to do: Try to increase your intake. I recommend a protein shake at least 1 daily, try Orgain vegan shake if you can find it. I also personally enjoy Oatly Ice cream, stefan swirl or Salted rayray. *Continue to take medications as directed *Follow up with your primary care provider in 2-3 days or call [phone] Colon, call on Sunday *Return to ER if you should have been some shortness of breath, decreased in take, no urine output, increased confusion, or weakness any new, worsening or concerning symptom Prescriptions: No Action furosemide [Lasix] 20 mg tablet 20 mg PO DAILY Qty: 3 0RF Referrals: Elo Villeda PA-C [Primary Care Provider] - Cris Colon MD [Physician] -
[2021-12-24 14:26] LABS: Alanine Aminotransferase 14 IU/L (<35); Albumin 3.2 g/dL (3.5-5.0); Alkaline Phosphatase 65 U/L (38-126); Aspartate Aminotransferase 29 IU/L (14-36); BUN Creatinine Ratio 22.7 (6-22); Bilirubin Total 0.7 mg/dL (0.2-1.3); Blood Urea Nitrogen 10 mg/dL (7-17); Calcium 9.1 mg/dL (8.4-10.2); Chloride 81 mmol/L (98-107); Creatine Kinase 25 U/L (30-135); Estimated Glomerular Filt Rate > 60.0 mL/min (>60); Globulin 3.2 g/dL (1.7-4.1); Glucose 112 mg/dL (80-110); HEMOLYSIS < 15 (0-50); Lipase 39 U/L (23-300); Magnesium 1.8 mg/dL (1.6-2.3); Potassium 4.1 mmol/L (3.4-5.1); Sodium 128 mmol/L (137-145); Total Protein 6.4 g/dL (6.3-8.2)
[2021-12-24 14:35] LABS: NT-proBNP (BNP-Adult 18+) 156 pg/mL (<450)
[2021-12-24 14:38] LABS: Troponin I < 0.012 ng/mL (0.01-0.034)
[2021-12-24 14:52] LABS: Carbon Dioxide 46 mmol/L (22-32)
--- NOTE | 2021-12-24 15:35 | DI.CT.S_ITS ---
PROCEDURE: CT ANGIO CHEST PE PROTOCOL INDICATIONS: hypoxia, new cancer, prior effusions TECHNIQUE: Helical axial CT of the chest was obtained after intravenous contrast injection utilizing an angiographic technique and reformatted in multiple planes. Automated exposure control and/or adjustment of the dose parameters according to patient's size was utilized for radiation dose reduction. COMPARISON: [facility], CT, CT CHEST W CON, 12/19/2021, 14:03. FINDINGS: Image quality: Excellent. Pulmonary arteries: Pulmonary arteries are normal in size, and demonstrate no intraluminal filling defects to suggest central pulmonary embolism. Lungs and pleura: Severe emphysematous changes again noted with multiple blebs and bulla. Moderate to large right pleural effusion with enhancing rind of soft tissue along the pleura with nodularity. Mediastinum: Heart size is normal, without pericardial effusion. Right hilar and mediastinal adenopathy remains unchanged. Thoracic aorta is normal in caliber and enhancement. Esophagus is normal in caliber, without hiatal hernia. Bones and chest wall: No suspicious bony lesions. Ribs and thoracic spine appear intact throughout. Thyroid gland unremarkable. No axillary or supraclavicular adenopathy. Abdomen: Several hypoenhancing hepatic metastatic lesions again noted. IMPRESSION: 1. No evidence of pulmonary embolism, aortic dissection or aneurysm 2. Moderate to large right pleural effusion with enhancing rind of pleural based nodular soft tissue, most compatible with malignancy. Hilar and mediastinal adenopathy stable. 3. Metastatic hepatic lesions also stable Approved by: Adolfo Tyson M.D. on 12/24/2021 at 15:58
--- NOTE | 2021-12-26 15:56 | ONC.MSW ---
Description: New Referral Navigation T/C Reason for Referral: Malignant Pleural Effusion Activity: Reviewed EMR, clinicals, and referral for acuity, medical status, and immediate needs. Pt's family called today inquiring about the referral, this MAP DRAFTER had called the [facility] last week and requested it, however, it never came. Over the last week, pt has been to the ED 3-times with worsening dyspnea, chest pain, increasing fatigue/weakness. Imaging is in the EMR, pleural effusion was tested and was positive for malignant cells, cytology path report in EMR. Further tests are being done on the fluid to determine the primary site of the malignancy, pt does have a remote hx of breast cancer in 1990, we will request that pathology if still available. Discussed the role of MAP DRAFTER/navigation, as well as the ongoing availability of assistance, support, and resource referrals as needed. Confirmed her initial consult time for next week, 01/04 at 2:00pm. No further needs are indicated at this time.
== END 2021-12-24 17:53 | disposition home or self-care (01) ==
PROVIDERS: Emergency Provider Emergency Medicine; Family Provider Physician Assistant; PCP Physician Assistant
DX: C80.1 Malignant (primary) neoplasm, unspecified (principal); J91.0 Malignant pleural effusion; Z87.891 Personal history of nicotine dependence; Z20.822 Contact with and (suspected) exposure to COVID-19
CPT/HCPCS: 36415; 71045; 71275; 80053; 81003; 82550; 83690; 83735; 83880; 84484; 85025; 87635; 93005; 99284; 99285; C9803; Q9967

== ENCOUNTER 2021-12-26 16:48 | Inpatient (IN) | payer OTHER, SELFPAY ==
[2021-12-26] VITALS (14 sets, daily range): BP systolic 116–140; BP diastolic 54–68; PULSE 90–98; RESP 21–32; TEMP 36.3–36.5; O2SAT 91–97; BMI 21.4
--- NOTE | 2021-12-26 16:56 | DI.RAD.S_ITS ---
PROCEDURE: XR CHEST 1V INDICATIONS: shortness of breath TECHNIQUE: One view of the chest was acquired. COMPARISON: [facility], , XR CHEST 1V, 12/24/2021, 13:07. FINDINGS: Worsening of right pleural effusion and overlying consolidation. Diffusely coarsened interstitial markings in both lungs are similar. Cardiomegaly is similar. IMPRESSION: Worsened right lung disease and pleural effusion. Dictated by: Mahin Mathews M.D. on 12/26/2021 at 17:11 Approved by: Mahin Mathews M.D. on 12/26/2021 at 17:12
[2021-12-26 17:54] LABS: Lactate (Lactic Acid) 1.7 mmol/L (0.7-2.1)
[2021-12-26 17:55] LABS: Alanine Aminotransferase 15 IU/L (<35); Albumin 3.4 g/dL (3.5-5.0); Alkaline Phosphatase 70 U/L (38-126); Aspartate Aminotransferase 30 IU/L (14-36); BUN Creatinine Ratio 24.4 (6-22); Bilirubin Total 0.6 mg/dL (0.2-1.3); Blood Urea Nitrogen 10 mg/dL (7-17); Calcium 9.1 mg/dL (8.4-10.2); Chloride 81 mmol/L (98-107); Estimated Glomerular Filt Rate > 60.0 mL/min (>60); Globulin 3.5 g/dL (1.7-4.1); Glucose 125 mg/dL (80-110); HEMOLYSIS < 15 (0-50); Potassium 4.2 mmol/L (3.4-5.1); Sodium 127 mmol/L (137-145); Total Protein 6.9 g/dL (6.3-8.2)
[2021-12-26 17:59] LABS: Add Manual Diff / Slide Review NO; Basophils Absolute Auto 0 /uL (0-100); Basophils Percent Auto 0.2 % (0-2); Eosinophils Absolute Auto 0 /uL (0-450); Eosinophils Percent Auto 0.1 % (2-4); Hematocrit 39.7 % (36-46); Hemoglobin 13.5 g/dL (12.0-16.0); Lymphocytes Absolute Auto 300 /uL (1100-4500); Lymphocytes Percent Auto 2.3 % (25-40); Mean Corpuscular Volume 91.2 fL (80-100); Monocytes Absolute Auto 1000 /uL (0-900); Monocytes Percent Auto 8.8 % (3-14); Neutrophils Absolute Auto 10000 /uL (1500-7000); Neutrophils Percent Auto 88.6 % (50-75); Platelet Count 356 X10^3/uL (150-400); Red Blood Cell Count 4.35 X10^6/uL (4.0-5.2); Red Cell Distribution Width 12.2 % (11.6-14.8); White Blood Cell Count 11.3 X10^3/uL (4.5-11.0)
[2021-12-26 18:04] LABS: NT-proBNP (BNP-Adult 18+) 196 pg/mL (<450)
[2021-12-26 18:07] LABS: Troponin I < 0.012 ng/mL (0.01-0.034)
[2021-12-26 18:12] LABS: Carbon Dioxide 47 mmol/L (22-32)
[2021-12-26 18:20] LABS: COVID19 -Nasal RAPID Negative (Negative)
--- NOTE | 2021-12-26 21:00 | PC.NURSE ---
Pt desatted to 82% while up to [facility]
--- NOTE | 2021-12-26 21:12 | ED_ITS ---
HPI - SOB/Dyspnea General Chief Complaint: Shortness of Breath/Dyspnea Stated Complaint: dyspnea Time Seen by Provider: 12/26/21 20:03 Source: patient and EMS Mode of arrival: EMS Limitations: no limitations History of Present Illness HPI Narrative: This is a 76-year-old female who was seen by myself earlier this month with recurrent pleural effusion. Patient had thoracentesis which showed malignant cells. Patient is scheduled to see Oncology on . Patient has had increasing shortness of breath and swelling in her lower extremities. She is on home O2 but they noted she was dropping sometimes 60-90% on her normal O2 while sitting on the couch. She has had orthopnea. Shortness of breath without chest pain. No fevers or chills. No nausea or vomiting. No issues with bowel movements or urination. She states she has had decreased fluid intake and eating. She is normally on sildenafil, levothyroxine and Lasix 20 mg and potassium chloride. Patient's primary care is through the [facility]. She does follow with pulmonary rehab. She noted a polyp removal 12 years ago, she no longer smokes tobacco, no alcohol or illicit. She lives independently and felt much better after her last thoracentesis. She is accompanied by her friend who is also her DPOA. Related Data Home Medications Medication Instructions Recorded Confirmed levothyroxine 88 mcg tablet 88 mcg PO DAILY 12/26/21 12/26/21 potassium chloride 10 mEq 10 meq PO DAILY 12/26/21 12/26/21 tablet,extended release sildenafil (pulm.hypertension) 20 20 mg PO TID 12/26/21 12/26/21 mg tablet Previous Rx's Medication Instructions Recorded furosemide 20 mg tablet (Lasix) 20 mg PO DAILY #3 tab 12/19/21 Allergies Allergy/AdvReac Type Severity Reaction Status Date / Time No Known Drug Allergies Allergy Verified 12/26/21 16:52 Review of Systems Review of Systems ROS Unobtainable: All systems reviewed & are unremarkable except as noted in HPI and below Patient History Medical History Chronic hypercapnic respiratory failure HX: breast cancer Hypothyroidism Pleural effusion Pulmonary hypertension Family History Mother Old age Father Pneumonia Social History household members: none Smoking Status: Former smoker alcohol intake: current Smoking Status: Former smoker alcohol intake frequency: 0-2 drinks per day Substance Use Type: does not use Exam Narrative Exam Narrative: GENERAL: Alert and oriented x three, thin elderly female in [id number] distress. HEENT: Head normocephalic, atraumatic, EOMI, pupils reactive, face symmetric, moist mucous membranes NECK: Supple, full range of motion CARDIOVASCULAR: Regular rate and rhythm without murmurs, rubs or gallops. RESPIRATORY: Breath sounds decreased on the right, patient has crackles on the left. No wheezes rales or rhonchi. Positive for tachypnea. No accessory muscle use. ABDOMEN: Soft, nontender. Normoactive bowel sounds all 4 quadrants. No guarding or rebound, rigidity, no mass : No CVA tenderness EXTREMITIES: Normal range of motion, positive for bilateral lower extremity edema. Neurovascularly intact NEUROLOGICAL: Cranial nerves II through XII grossly intact. Moving all extremities SKIN: Warm, dry, no petechiae, no rashes or lesions. Initial Vital Signs Initial Vital Signs: Vital Signs Temperature 97.7 F 12/26/21 16:48 Pulse Rate 91 H 12/26/21 16:48 Respiratory Rate 32 H 12/26/21 16:48 Blood Pressure 134/60 12/26/21 16:48 Pulse Oximetry 91 12/26/21 16:48 Course Orders Ordered: Acetaminophen (Acetaminophen 325 Mg Tablet) 650 mg PO Q6HR PRN PRN Reason: Fever/Mild Pain (1-3) Docusate Sodium (Docusate 100 Mg Capsule) 100 mg PO BID PRN PRN Reason: Constipation Enoxaparin Sodium (Enoxaparin 40 Mg/0.4 Ml Syringe) 40 mg SUBCUT DAILY [facility] Last Admin: 12/27/21 16:03 Dose: 40 mg Documented by: JAVID Levothyroxine Sodium (Levothyroxine 88 Mcg Tablet) 88 mcg PO DAILY@0600 [facility] Last Admin: 12/27/21 06:28 Dose: 88 mcg Documented by: ADI Magnesium Hydroxide (Magnesium Hydroxide 30 Ml Udc) 30 ml PO DAILY PRN PRN Reason: Constipation Morphine Sulfate (Morphine 2 Mg/Ml Inj) 2 mg IV Q4HR PRN PRN Reason: Pain, Moderate (4-6) Naloxone HCl (Naloxone 0.4 Mg/Ml Vial) 0.2 mg IV Q2MIN PRN PRN Reason: Opiate Reversal Ondansetron HCl (Ondansetron 4 Mg/2 Ml Inj) 4 mg IV Q6HR PRN PRN Reason: Nausea And Vomiting Sildenafil Citrate (Sildenafil 20 Mg Tablet) 20 mg PO TID [facility] Last Admin: 12/27/21 20:36 Dose: 20 mg Documented by: Admin: 12/27/21 16:02 Dose: 20 mg Documented by: Admin: 12/27/21 09:01 Dose: 20 mg Documented by: JAVID Discontinued Medications Furosemide (Furosemide 40 Mg/4 Ml Vial) 40 mg IV NOW ONE Stop: 12/26/21 21:34 Last Admin: 12/26/21 21:41 Dose: 40 mg Documented by: LYNNETTE Consultations Consultation #1: ZANA Forrest, hosptalist, Vital Signs Vital signs: Vital Signs - 8 hr 12/26/21 16:48 12/26/21 16:49 12/26/21 17:00 Temperature 97.7 F Pulse Rate 91 H 97 H 90 Respiratory Rate 32 H Blood Pressure 134/60 119/59 L Pulse Oximetry 91 95 97 12/26/21 17:30 12/26/21 18:00 12/26/21 18:30 Temperature Pulse Rate 92 H 94 H 93 H Respiratory Rate 29 H 25 H 21 Blood Pressure 116/54 L 121/57 L 121/59 L Pulse Oximetry 91 95 94 12/26/21 19:00 12/26/21 19:30 Temperature Pulse Rate 94 H 94 H Respiratory Rate 24 28 H Blood Pressure 121/58 L 125/60 Pulse Oximetry 94 94 MDM - SOB/Dyspnea Lab Data Result diagrams: 12/27/21 05:07 12/27/21 05:07 Labs: Lab Results 12/26/21 12/26/21 12/26/21 Range/Units 16:59 17:27 17:27 WBC 11.3 H (4.5-11.0) X10^3/uL RBC 4.35 (4.0-5.2) X10^6/uL Hgb 13.5 (12.0-16.0) g/dL Hct 39.7 (36-46) % MCV 91.2 (80-100) fL MCH 31.0 (26-34) PG MCHC 34.0 (30-36) % RDW 12.2 (11.6-14.8) % Plt Count 356 (150-400) X10^3/uL Neut % (Auto) 88.6 H (50-75) % Lymph % (Auto) 2.3 L (25-40) % [place] % (Auto) 8.8 (3-14) % Eos % (Auto) 0.1 L (2-4) % Baso % (Auto) 0.2 (0-2) % Neut # (Auto) 97952 H (6552-8877) /uL Lymph # (Auto) 300 L (0530-7399) /uL [place] # (Auto) 1000 H (0-900) /uL Eos # (Auto) 0 (0-450) /uL Baso # (Auto) 0 (0-100) /uL Sodium 127 L (137-145) mmol/L Potassium 4.2 (3.4-5.1) mmol/L Chloride 81 L (98-107) mmol/L Carbon Dioxide 47 H* (22-32) mmol/L BUN 10 (7-17) mg/dL Creatinine 0.41 L (0.52-1.04) mg/dL Estimated GFR > 60.0 (>60) mL/min BUN/Creatinine Ratio 24.4 H (6-22) Glucose 125 H (80-110) mg/dL Lactate (0.7-2.1) mmol/L Calcium 9.1 (8.4-10.2) mg/dL Total Bilirubin 0.6 (0.2-1.3) mg/dL AST 30 (14-36) IU/L ALT 15 (<35) IU/L Alkaline Phosphatase 70 (38-126) U/L Troponin I (0.01-0.034) ng/mL NT-Pro-B Natriuret Pep (<450) pg/mL Total Protein 6.9 (6.3-8.2) g/dL Albumin 3.4 L (3.5-5.0) g/dL Globulin 3.5 (1.7-4.1) g/dL Albumin/Globulin Ratio 1.0 (1.0-2.8) Procalcitonin (<0.5) ng/mL SARS-CoV-2 (PCR) Negative (Negative) 12/26/21 12/26/21 12/26/21 Range/Units 17:27 17:27 17:27 WBC (4.5-11.0) X10^3/uL RBC (4.0-5.2) X10^6/uL Hgb (12.0-16.0) g/dL Hct (36-46) % MCV (80-100) fL MCH (26-34) PG MCHC (30-36) % RDW (11.6-14.8) % Plt Count (150-400) X10^3/uL Neut % (Auto) (50-75) % Lymph % (Auto) (25-40) % [place] % (Auto) (3-14) % Eos % (Auto) (2-4) % Baso % (Auto) (0-2) % Neut # (Auto) (2763-7271) /uL Lymph # (Auto) (3810-4281) /uL [place] # (Auto) (0-900) /uL Eos # (Auto) (0-450) /uL Baso # (Auto) (0-100) /uL Sodium (137-145) mmol/L Potassium (3.4-5.1) mmol/L Chloride (98-107) mmol/L Carbon Dioxide (22-32) mmol/L BUN (7-17) mg/dL Creatinine (0.52-1.04) mg/dL Estimated GFR (>60) mL/min BUN/Creatinine Ratio (6-22) Glucose (80-110) mg/dL Lactate 1.7 (0.7-2.1) mmol/L Calcium (8.4-10.2) mg/dL Total Bilirubin (0.2-1.3) mg/dL AST (14-36) IU/L ALT (<35) IU/L Alkaline Phosphatase (38-126) U/L Troponin I < 0.012 (0.01-0.034) ng/mL NT-Pro-B Natriuret Pep 196 (<450) pg/mL Total Protein (6.3-8.2) g/dL Albumin (3.5-5.0) g/dL Globulin (1.7-4.1) g/dL Albumin/Globulin Ratio (1.0-2.8) Procalcitonin (<0.5) ng/mL SARS-CoV-2 (PCR) (Negative) 12/26/21 Range/Units 17:27 WBC (4.5-11.0) X10^3/uL RBC (4.0-5.2) X10^6/uL Hgb (12.0-16.0) g/dL Hct (36-46) % MCV (80-100) fL MCH (26-34) PG MCHC (30-36) % RDW (11.6-14.8) % Plt Count (150-400) X10^3/uL Neut % (Auto) (50-75) % Lymph % (Auto) (25-40) % [place] % (Auto) (3-14) % Eos % (Auto) (2-4) % Baso % (Auto) (0-2) % Neut # (Auto) (7297-8443) /uL Lymph # (Auto) (5426-1153) /uL [place] # (Auto) (0-900) /uL Eos # (Auto) (0-450) /uL Baso # (Auto) (0-100) /uL Sodium (137-145) mmol/L Potassium (3.4-5.1) mmol/L Chloride (98-107) mmol/L Carbon Dioxide (22-32) mmol/L BUN (7-17) mg/dL Creatinine (0.52-1.04) mg/dL Estimated GFR (>60) mL/min BUN/Creatinine Ratio (6-22) Glucose (80-110) mg/dL Lactate (0.7-2.1) mmol/L Calcium (8.4-10.2) mg/dL Total Bilirubin (0.2-1.3) mg/dL AST (14-36) IU/L ALT (<35) IU/L Alkaline Phosphatase (38-126) U/L Troponin I (0.01-0.034) ng/mL NT-Pro-B Natriuret Pep (<450) pg/mL Total Protein (6.3-8.2) g/dL Albumin (3.5-5.0) g/dL Globulin (1.7-4.1) g/dL Albumin/Globulin Ratio (1.0-2.8) Procalcitonin 0.07 (<0.5) ng/mL SARS-CoV-2 (PCR) (Negative) Imaging Data Chest x-ray: Radiologist's Impression: [address] [id number] XRay Report Signed Patient: Amanda Murphy MR#: [id number] : 1945 Acct:[id number] Age/Sex: 76 / F Date of Service: 12/26/21 Loc: ED Accession Number: [id number] ?? Procedure: XR chest 1V Ordering Provider: Kristyn Collins D.O. PROCEDURE:? XR CHEST 1V ? INDICATIONS:? shortness of breath ? TECHNIQUE:? One view of the chest was acquired.? ? COMPARISON:? [facility], , XR CHEST 1V, 12/24/2021, 13:07. ? FINDINGS:? ? Worsening of right pleural effusion and overlying consolidation.? Diffusely coarsened interstitial markings in both lungs are similar.? Cardiomegaly is similar. ? IMPRESSION:? Worsened right lung disease and pleural effusion. ? ? Dictated by: Mahin Mathews M.D. on 12/26/2021 at 17:11 ? ? Approved by: Mahin Mathews M.D. on 12/26/2021 at 17:12?? ECG Data Attestation: I personally reviewed and interpreted this ECG as follows: Prior ECG tracings: available for review Interpretation: Sinus rhythm rate of 85 MO 136 QRS is 76 and QTC of 411. No acute ST changes noted. Patient has prior which appears similar. MDM Narrative Medical decision making narrative: This is a 76-year-old female with recurrent pleural effusion suspected to be malignant with malignant cells on cytology. Patient does not have a formal diagnosis with oncology and is scheduled to see them on . She presents with increasing shortness of breath, weakness and is noted to have slowly worsening hyponatremia, worsening pleural effusion after thoracentesis. And requiring increased O2. Discussed with hospitalist would like to bring patient in for observation for thoracentesis, monitoring of her hyponatremia. Discharge Plan Departure Patient Disposition: Admitted as Observation Clinical Impression: Pleural effusion, Hypoxia, Hyponatremia Admit Date/Time: 12/26/21 21:45 Admit Provider: Vy Forrest
[2021-12-26] MEDS: FUROSEMIDE 40 MG/4 ML VIAL IV (21:41)
--- NOTE | 2021-12-26 23:10 | P.HP_ITS ---
History of Present Illness History of Present Illness Date Patient Seen: 12/26/21 Time Patient Seen: 23:10 Chief complaint: dyspnea Narrative: Amanda Murphy is a 76-year-old female with a remote history of right-sided breast cancer in approximately 1996, COPD, hypothyroidism, and pulmonary hypertension presented to the emergency department today with a recurrent right sided pleural effusion.?She was seen in the ED on December 19 and opted to not be admitted or transferred, but was referred to outpatient thoracentesis the following day. Initial cytology report indicated malignant cells.? Patient is scheduled to see Oncology on .? She is accompanied by her friend and DPOA who provides much of the history. She has had increasing shortness of breath and swelling in her lower extremities.? She is on home O2 but they noted she was dropping sometimes 60-90% on her normal O2 while sitting on the couch.? She has had orthopnea.? Shortness of breath, denying chest pain, fevers or chills, nausea or vomiting, .? No issues with bowel movements or urination.? She states she has had decreased fluid intake and eating.? She tales sildenafil, levothyroxine, Lasix 20 mg and potassium chloride.? She does follow with pulmonary rehab.? She endorses having had a colon polyp removal 12 years ago, she no longer smokes tobacco, no alcohol or illicit.? She lives independently and felt much better after her last thoracentesis.? She is accompanied by her friend, Lebron Mendoza who is also her DPOA. Chest x-ray done today was compared with CT scan 2 days ago. Findings: Worsening of right pleural effusion and overlying consolidation.? Diffusely coarsened interstitial markings in both lungs are similar.? Cardiomegaly is similar. She is afebrile, blood pressure 140/63, heart rate 98, respiratory rate 22 oxygen saturation of 94% on 4 L sometimes increased demand to 6 L, she weighs 55 kg with a BMI of 21.5. WBC is 11.3 with a left shift, neutrophils of 10,000, sodium 127, chloride 81, bicarb 47, creatinine 0.41, glucose 125, l actate is normal, albumin 3.4, and procalcitonin ordered and is pending. Patient History Medical History Chronic hypercapnic respiratory failure HX: breast cancer Hypothyroidism Pleural effusion Pulmonary hypertension Family & Social History Family History Mother Old age Father Pneumonia Social History: household members none Prior Living Arrangements House Safety & Behavioral: Feels Safe in Current Yes Environment Been Physically Hurt or No Threatened By a Person Suicidal Ideation Description None Suicide Plan Description No Plan Tobacco & Substance use: Smoking Status Former smoker 2.5 year pack history, exposed to second hand smoke alcohol intake current alcohol intake frequency holiday/special occasion Substance Use Type does not use Meds Home Medications and Allergies Home Medications Medication Instructions Recorded Confirmed Type furosemide 20 mg tablet (Lasix) 20 mg PO DAILY #3 tab 12/19/21 12/26/21 Rx levothyroxine 88 mcg tablet 88 mcg PO DAILY 12/26/21 12/26/21 History potassium chloride 10 mEq 10 meq PO DAILY 12/26/21 12/26/21 History tablet,extended release sildenafil (pulm.hypertension) 20 20 mg PO TID 12/26/21 12/26/21 History mg tablet Allergies Allergy/AdvReac Type Severity Reaction Status Date / Time No Known Drug Allergies Allergy Verified 12/26/21 16:52 Review of Systems Review of Systems ROS: Yes All systems reviewed with the patient and are negative except as otherwise documented Exam Vital Signs (past 8 hours): - 12/26/21 16:48 12/26/21 16:49 12/26/21 17:00 Temperature 97.7 F Pulse Rate 91 H 97 H 90 Respiratory Rate 32 H Blood Pressure 134/60 119/59 L Pulse Oximetry 91 95 97 12/26/21 17:30 12/26/21 18:00 12/26/21 18:30 Temperature Pulse Rate 92 H 94 H 93 H Respiratory Rate 29 H 25 H 21 Blood Pressure 116/54 L 121/57 L 121/59 L Pulse Oximetry 91 95 94 12/26/21 19:00 12/26/21 19:30 12/26/21 20:00 Temperature Pulse Rate 94 H 94 H 91 H Respiratory Rate 24 28 H 23 Blood Pressure 121/58 L 125/60 135/61 Pulse Oximetry 94 94 95 12/26/21 20:30 12/26/21 21:00 12/26/21 21:30 Temperature Pulse Rate 93 H 96 H 93 H Respiratory Rate 26 H 29 H 26 H Blood Pressure 116/55 L 116/68 140/61 Pulse Oximetry 95 93 93 Oxygen Delivery Method Nasal Cannula Oxygen Flow Rate 6 Narrative Exam Narrative: Gen: Alert, oriented, frail appearing 76 y.o. female, appears fatigued HEENT: normocephalic, atraumatic, conjunctiva clear, sclera non-icteric, oral mucosa pink and moist Neck: supple, full ROM, no JVD, trachea is midline Resp: Right lung sounds are diminished, left clear, non-labored breathing on supplemental O2 CV: RRR, no murmur or rubs Abd: soft, non-tender, normoactive BTs Skin: no lesions or rashes, dry and intact Neuro: Alert and oriented X 4 w/no focal deficits. Speech clear and coherent. Extremities: moves all 4 extremities, is ambulatory, negative Nena?s sign Psyche: normal mood and affect. Objective Labs Result Diagrams: 12/26/21 17:27 12/26/21 17:27 Labs: Laboratory Results - last 24 hr 12/26/21 12/26/21 12/26/21 16:59 17:27 17:27 WBC 11.3 H RBC 4.35 Hgb 13.5 Hct 39.7 MCV 91.2 MCH 31.0 MCHC 34.0 RDW 12.2 Plt Count 356 Neut % (Auto) 88.6 H Lymph % (Auto) 2.3 L [place] % (Auto) 8.8 Eos % (Auto) 0.1 L Baso % (Auto) 0.2 Neut # (Auto) 34695 H Lymph # (Auto) 300 L [place] # (Auto) 1000 H Eos # (Auto) 0 Baso # (Auto) 0 Sodium 127 L Potassium 4.2 Chloride 81 L Carbon Dioxide 47 H* BUN 10 Creatinine 0.41 L Estimated GFR > 60.0 BUN/Creatinine Ratio 24.4 H Glucose 125 H Lactate Calcium 9.1 Total Bilirubin 0.6 AST 30 ALT 15 Alkaline Phosphatase 70 Troponin I NT-Pro-B Natriuret Pep Total Protein 6.9 Albumin 3.4 L Globulin 3.5 Albumin/Globulin Ratio 1.0 SARS-CoV-2 (PCR) Negative 12/26/21 12/26/21 12/26/21 17:27 17:27 17:27 WBC RBC Hgb Hct MCV MCH MCHC RDW Plt Count Neut % (Auto) Lymph % (Auto) [place] % (Auto) Eos % (Auto) Baso % (Auto) Neut # (Auto) Lymph # (Auto) [place] # (Auto) Eos # (Auto) Baso # (Auto) Sodium Potassium Chloride Carbon Dioxide BUN Creatinine Estimated GFR BUN/Creatinine Ratio Glucose Lactate 1.7 Calcium Total Bilirubin AST ALT Alkaline Phosphatase Troponin I < 0.012 NT-Pro-B Natriuret Pep 196 Total Protein Albumin Globulin Albumin/Globulin Ratio SARS-CoV-2 (PCR) Assessment & Plan Assessment & Plan narrative: Amanda Rivera is admitted for further evaluation and management of a right sided pleural effusion suspected to be malignant. Pleural effusion, worsening and present on admission * She will undergo ultrasound guided thoracentesis in the am. * Holding pharmacological anticoagulation until after the thoracentesis is done. Pulmonary hypertension, chronic and present on admission * Continue home dose of sildenafil 20 mg po TID Hypothyroidism, chronic and present on admission * Continue home dose of levothyroxine 88 mcg daily Lower extremity swelling * She was administered IV Lasix in the emergency department and is now urinating quite a bit * Administer Lasix as needed rather than scheduled VTE Prophylaxis: Wells risk score 4 X Bilateral SCDs Patient is admitted to the inpatient service due to the severity of disease, risks of further disease progression and this stay is expected to exceed 2 midnights. FEN: IV fluids: saline lock, diet: low sodium heart healthy diet, labs: CBC, C/BMP, liver enzymes, Mag, Consultants: IR, Dr. Colon, oncology, care and involvement in the patient?s care is appreciated. Dispo: unknown at this time Code status: full code as discussed with the patient who identifies friend, Lebron Mendoza as her surrogate and POA. [X] I have utilized all available immediate resources to obtain, update, or review of the patient's current medications COVID-19 COVID-19 status: Negative Result date/Date tested (Pos, Neg/Pending): 12/26/21 Time Spent With Patient Critical Care time: I spent a total of [] minutes of critical care time on this patient's care today; this time is exclusive of procedural time. Scores Wells' Criteria for PE Clinical signs and symptoms of DVT: Yes PE is #1 Dx or equally likely: No Heart rate > 100: No Immobilization at least 3 days or surg in previous 4 weeks: No History of PE or DVT: No Hemoptysis: No Malignancy w/Treatment within 6 months or palliative: Yes Wells' PE Score total: 4 Quality VTE Deep Vein Thrombosis/Pulmonary Embolism Present on Admission: No MIPS - Admit I confirm the patient?s Advance Care Plan is present, Code status is documented, Surrogate decision maker is in patient?s record [If Yes, STOP here]: Yes MIPS - DC The patient has current or prior documentation of left ventricular ejection fraction (LVEF) less than 40%, or moderate or severely depressed left ventricular systolic function.: No
[2021-12-27] VITALS (11 sets, daily range): BP systolic 113–148; BP diastolic 56–69; PULSE 93–104; RESP 16–20; TEMP 36.3–36.6; O2SAT 95–100
[2021-12-27 01:31] LABS: Procalcitonin 0.07 ng/mL (<0.5)
[2021-12-27 05:36] LABS: Add Manual Diff / Slide Review NO; Basophils Absolute Auto 0 /uL (0-100); Basophils Percent Auto 0.2 % (0-2); Eosinophils Absolute Auto 0 /uL (0-450); Eosinophils Percent Auto 0.2 % (2-4); Hematocrit 40.8 % (36-46); Hemoglobin 13.7 g/dL (12.0-16.0); Lymphocytes Absolute Auto 300 /uL (1100-4500); Lymphocytes Percent Auto 2.7 % (25-40); Mean Corpuscular HGB Conc 33.6 % (30-36); Mean Corpuscular Hemoglobin 30.9 PG (26-34); Mean Corpuscular Volume 91.9 fL (80-100); Monocytes Absolute Auto 1200 /uL (0-900); Monocytes Percent Auto 11.7 % (3-14); Neutrophils Absolute Auto 8800 /uL (1500-7000); Neutrophils Percent Auto 85.2 % (50-75); Platelet Count 336 X10^3/uL (150-400); Red Blood Cell Count 4.44 X10^6/uL (4.0-5.2); Red Cell Distribution Width 12.5 % (11.6-14.8); White Blood Cell Count 10.3 X10^3/uL (4.5-11.0)
[2021-12-27 05:44] LABS: BUN Creatinine Ratio 25.5 (6-22); Blood Urea Nitrogen 12 mg/dL (7-17); Calcium 8.9 mg/dL (8.4-10.2); Chloride 81 mmol/L (98-107); Estimated Glomerular Filt Rate > 60.0 mL/min (>60); Glucose 115 mg/dL (80-110); HEMOLYSIS < 15 (0-50); Magnesium 1.8 mg/dL (1.6-2.3); Potassium 3.9 mmol/L (3.4-5.1); Sodium 128 mmol/L (137-145)
[2021-12-27 05:55] LABS: Carbon Dioxide 49 mmol/L (22-32)
[2021-12-27] MEDS: LEVOTHYROXINE 88 MCG TABLET PO (06:28)
--- NOTE | 2021-12-27 08:00 | DI.US.S_ITS ---
PROCEDURE: US THORACENTESIS INDICATIONS: RIGHT PLEURAL EFFUSION TECHNIQUE: The indications, alternatives, benefits, risks, and complications of the procedure were explained to the patient. Written informed consent was obtained and placed in the chart. The chest was examined sonographically, and an appropriate site was chosen for thoracentesis. The skin was prepared and draped in the usual sterile fashion, and 1% lidocaine was infiltrated from the skin down through the pleural surface. A 19-gauge catheter-covered needle was then introduced into the pleural space, the catheter was advanced and the needle was withdrawn, and thereafter pleural fluid was aspirated. The catheter was then removed and a dressing was applied. COMPARISON: None. FINDINGS: Access site: Right hemithorax. Needle: One-Step centesis catheter with introducer needle. Fluid volume and description: 1400 cubic centimeters of blood tinged fluid. Fluid sent for diagnostic testing: Not requested Medications: 1% lidocaine for local anaesthesia. Complications: None; post-procedural chest radiograph is pending to assess for pneumothorax. IMPRESSION: Successful ultrasound-guided thoracentesis. No immediate complications. Dictated by: Zora Recinos MD, PhD on 12/27/2021 at 10:11 Approved by: Zora Recinos MD, PhD on 12/27/2021 at 10:11
--- NOTE | 2021-12-27 08:43 | DI.RAD.S_ITS ---
PROCEDURE: XR CHEST 1V INDICATIONS: POST THORACENTESIS TECHNIQUE: One view of the chest was acquired. COMPARISON: None. FINDINGS: Surgical changes and devices: None. Lungs and pleura: Lungs are clear. Small right and trace left pleural fluid collections. No pneumothorax. Mediastinum: Mediastinal contours appear normal. Heart size is normal. Bones and chest wall: No suspicious bony lesions. Overlying soft tissues appear unremarkable. IMPRESSION: No pneumothorax following thoracentesis. Dictated by: Zora Recinos MD, PhD on 12/27/2021 at 9:02 Approved by: Zora Recinos MD, PhD on 12/27/2021 at 9:02
[2021-12-27] MEDS: SILDENAFIL 20 MG TABLET PO ×3 (09:01→20:36)
--- NOTE | 2021-12-27 13:21 | CM.DANOTE ---
Patient is a 76 yo female who was admitted on 12/26/21 for Carcinoma in Breast. Pt has [facility] for insurance and her PCP is Elo Villeda. EMR was reviewed. Per , pt with remote hx of breast CA in 1996 and Thoracentesis a week ago showed likely malignant cells and has home oxygen at baseline. Pt admitted for Right Side PE, likely malignant and to have ultrasound guided thora by IR today. Pt established with Dr. Gage Oncologist at [facility] and has scheduled appointment there this week on . Per MD, pending pt's progress she may be able to d/c to home tomorrow as important she maintain her scheduled appointment with Oncology. SW met bedside with pt and explained role and she confirms she lives in [place] alone but is mostly independent with ADL's and sometimes drives and denies any local family but states she has a few really good supportive friends and her friend Lebron Mendoza is her DPOA and likely to provide transport home. Pt denies any hx of HH or SNF but states she feels there's a chance that she may benefit from HH at discharge. SW updated MD and will determine pt's progress and needs closer to d/c. Plan: SW to follow for possible d/c to home pending thoracentesis today and outpt Oncology appointment for this week. SW to follow to r/o HH. MARII Phillips Discharge Planning/Care Management CM Discharge Assessment Start: 12/27/21 13:05 Freq: Status: Active Protocol: Document 12/27/21 13:05 (Rec: 12/27/21 13:20 [id number]) Discharge Planning Assessment Assigned Portable Canteen Operator MARII Yee DPOA/Assigned Designee Name friend Lebron Mendoza Advance Directives? Yes: POLST Advance Directives on File Yes History Provided By Patient,Medical Record Has Patient been admitted in last 30 No days? Prior Living Arrangements House Household Members none Type of transporation used prior to Relies on Others admit Independent with ADL's Yes Is patient alert and oriented? Yes Needs Assistance With Home Chores / Shopping Caregiver for Another No Community Services used prior to IV Therapy admission: [facility] Preference Home with Home Health Barriers to Discharge No Discharge Plan Home with Home Health Transportation Arrangement friends to provide transport home Additional Comment Waiting to determine if HH needed. Whiteboard Updated in Patient Room with Yes name and ext. # of Portable Canteen Operator Review Status In Process Please Provide Date Initial DC 12/27/21 Assessment Was Performed Next Review Type Continued Stay Review
--- NOTE | 2021-12-27 14:52 | P.PN_ITS ---
Subjective Subjective Interval history: The patient reports feeling much better after thoracentesis. She reports having an oncology appointment on that she is anxious to make. Denies having any acute complaints at this time. She does endorse wearing nasal cannulae oxygen at home, too, up to 6 liters. Exam Vital Signs (past 8 hours): - 12/27/21 07:51 12/27/21 08:50 12/27/21 10:17 Temperature 97.4 F L Pulse Rate 101 H Respiratory Rate 20 Blood Pressure 122/58 L Pulse Oximetry 97 98 100 12/27/21 11:00 12/27/21 12:53 12/27/21 12:54 Temperature 97.8 F Pulse Rate 103 H Respiratory Rate 20 Blood Pressure 113/56 L Pulse Oximetry 100 95 98 Oxygen Delivery Method High Flow Nasal Cannula Oxygen Flow Rate 6 Narrative Exam Narrative: Gen: laying in bed comfortably upon my entering the room, in no apparent, acute distress HEENT: normocephalic, atraumatic, conjunctiva clear, sclera non-icteric, oral mucosa pink and moist Neck: supple, full ROM, no JVD, trachea is midline Resp: diminished breath sounds bilaterally, more so on the right CV: RRR, no murmur or rubs Abd: soft, non-tender, normoactive bowel sounds Skin: no lesions or rashes, dry and intact Neuro: alert and oriented X 4 with no focal neurological deficits Extremities: palpable and equally steady radial and dorsalis pedis pulses bilaterally Psyche: normal mood and affect Objective Labs Result Diagrams: 12/27/21 05:07 12/27/21 05:07 Labs: Laboratory Results - last 24 hr 12/26/21 12/26/21 12/26/21 16:59 17:27 17:27 WBC 11.3 H RBC 4.35 Hgb 13.5 Hct 39.7 MCV 91.2 MCH 31.0 MCHC 34.0 RDW 12.2 Plt Count 356 Neut % (Auto) 88.6 H Lymph % (Auto) 2.3 L Terrell % (Auto) 8.8 Eos % (Auto) 0.1 L Baso % (Auto) 0.2 Neut # (Auto) 58571 H Lymph # (Auto) 300 L Terrell # (Auto) 1000 H Eos # (Auto) 0 Baso # (Auto) 0 Sodium 127 L Potassium 4.2 Chloride 81 L Carbon Dioxide 47 H* BUN 10 Creatinine 0.41 L Estimated GFR > 60.0 BUN/Creatinine Ratio 24.4 H Glucose 125 H Lactate Calcium 9.1 Magnesium Total Bilirubin 0.6 AST 30 ALT 15 Alkaline Phosphatase 70 Troponin I NT-Pro-B Natriuret Pep Total Protein 6.9 Albumin 3.4 L Globulin 3.5 Albumin/Globulin Ratio 1.0 Procalcitonin SARS-CoV-2 (PCR) Negative 12/26/21 12/26/21 12/26/21 17:27 17:27 17:27 WBC RBC Hgb Hct MCV MCH MCHC RDW Plt Count Neut % (Auto) Lymph % (Auto) Terrell % (Auto) Eos % (Auto) Baso % (Auto) Neut # (Auto) Lymph # (Auto) Terrell # (Auto) Eos # (Auto) Baso # (Auto) Sodium Potassium Chloride Carbon Dioxide BUN Creatinine Estimated GFR BUN/Creatinine Ratio Glucose Lactate 1.7 Calcium Magnesium Total Bilirubin AST ALT Alkaline Phosphatase Troponin I < 0.012 NT-Pro-B Natriuret Pep 196 Total Protein Albumin Globulin Albumin/Globulin Ratio Procalcitonin SARS-CoV-2 (PCR) 12/26/21 12/27/21 12/27/21 17:27 05:07 05:07 WBC 10.3 RBC 4.44 Hgb 13.7 Hct 40.8 MCV 91.9 MCH 30.9 MCHC 33.6 RDW 12.5 Plt Count 336 Neut % (Auto) 85.2 H Lymph % (Auto) 2.7 L Terrell % (Auto) 11.7 Eos % (Auto) 0.2 L Baso % (Auto) 0.2 Neut # (Auto) 8800 H Lymph # (Auto) 300 L Terrell # (Auto) 1200 H Eos # (Auto) 0 Baso # (Auto) 0 Sodium 128 L Potassium 3.9 Chloride 81 L Carbon Dioxide 49 H* BUN 12 Creatinine 0.47 L Estimated GFR > 60.0 BUN/Creatinine Ratio 25.5 H Glucose 115 H Lactate Calcium 8.9 Magnesium 1.8 Total Bilirubin AST ALT Alkaline Phosphatase Troponin I NT-Pro-B Natriuret Pep Total Protein Albumin Globulin Albumin/Globulin Ratio Procalcitonin 0.07 SARS-CoV-2 (PCR) FOR[facility]LY [facility] Medical History Chronic hypercapnic respiratory failure HX: breast cancer Hypothyroidism Pleural effusion Pulmonary hypertension Family History Mother Old age Father Pneumonia Social History household members: none Smoking Status: Former smoker alcohol intake: current Assessment & Plan Assessment & Plan narrative: Amanda Rivera is admitted for further evaluation and management of a right sided pleural effusion, suspected to be malignant. Pleural effusion, worsening and present on admission * Underwent ultrasound guided thoracentesis on Dec 27, with 1400 cc removal Pulmonary hypertension, chronic and present on admission * Continue home dose of sildenafil 20 mg po TID Hypothyroidism, chronic and present on admission * Continue home dose of levothyroxine 88 mcg daily Lower extremity swelling * She was administered IV Lasix in the emergency department and is now urinating quite a bit * Administer Lasix as needed rather than scheduled VTE Prophylaxis: Lovenox 40 mg daily Code status: full code as discussed with the patient who identifies friend, Lebron Mendoza as her surrogate and DPOA. I have utilized all available immediate resources to obtain, update, or review the patient's current medications. Time Spent With Patient Critical Care time: I spent a total of [] minutes of critical care time on this patient's care today; this time is exclusive of procedural time. Quality VTE Deep Vein Thrombosis/Pulmonary Embolism Present on Admission: No MIPS - Admit I confirm the patient?s Advance Care Plan is present, Code status is documented, Surrogate decision maker is in patient?s record [If Yes, STOP here]: Yes
[2021-12-27] MEDS: ENOXAPARIN 40 MG/0.4 ML SYRINGE SUBCUT (16:03)
[2021-12-28] VITALS (10 sets, daily range): BP systolic 106–138; BP diastolic 48–62; PULSE 93–98; RESP 16–22; TEMP 36.2–36.5; O2SAT 90–96
[2021-12-28] MEDS: LEVOTHYROXINE 88 MCG TABLET PO (06:07)
[2021-12-28 06:26] LABS: Add Manual Diff / Slide Review NO; Basophils Absolute Auto 100 /uL (0-100); Basophils Percent Auto 0.6 % (0-2); Eosinophils Absolute Auto 100 /uL (0-450); Eosinophils Percent Auto 0.5 % (2-4); Hematocrit 37.7 % (36-46); Hemoglobin 12.6 g/dL (12.0-16.0); Lymphocytes Absolute Auto 400 /uL (1100-4500); Lymphocytes Percent Auto 3.4 % (25-40); Mean Corpuscular HGB Conc 33.4 % (30-36); Mean Corpuscular Hemoglobin 30.7 PG (26-34); Mean Corpuscular Volume 91.9 fL (80-100); Monocytes Absolute Auto 1100 /uL (0-900); Monocytes Percent Auto 10.3 % (3-14); Neutrophils Absolute Auto 9100 /uL (1500-7000); Neutrophils Percent Auto 85.2 % (50-75); Platelet Count 360 X10^3/uL (150-400); Red Cell Distribution Width 12.3 % (11.6-14.8); White Blood Cell Count 10.7 X10^3/uL (4.5-11.0)
[2021-12-28 06:40] LABS: BUN Creatinine Ratio 33.3 (6-22); Blood Urea Nitrogen 15 mg/dL (7-17); Chloride 80 mmol/L (98-107); Estimated Glomerular Filt Rate > 60.0 mL/min (>60); Glucose 110 mg/dL (80-110); HEMOLYSIS < 15 (0-50); Magnesium 1.9 mg/dL (1.6-2.3); Potassium 3.9 mmol/L (3.4-5.1); Sodium 128 mmol/L (137-145)
[2021-12-28 06:51] LABS: Carbon Dioxide 49 mmol/L (22-32)
--- NOTE | 2021-12-28 06:53 | PC.NURSE ---
Tracie from the lab called at 0650 for a critical lab value of CO2 of 49. Provider Lon and scrap charger were notified at 0651. No new orders at this time.
[2021-12-28] MEDS: ACETAMINOPHEN 325 MG TABLET 650 MG PO (09:31)
[2021-12-28] MEDS: MAGNESIUM HYDROXIDE 30 ML UDC PO (09:31)
[2021-12-28] MEDS: ENOXAPARIN 40 MG/0.4 ML SYRINGE SUBCUT (09:32)
[2021-12-28] MEDS: SILDENAFIL 20 MG TABLET PO ×3 (09:32→21:36)
[2021-12-28] MEDS: DOCUSATE 100 MG CAPSULE PO (09:32)
[2021-12-28] MEDS: FUROSEMIDE 20 MG TABLET PO (14:58)
--- NOTE | 2021-12-28 14:58 | P.PN_ITS ---
Subjective Subjective Interval history: Patient states today that her oncology appointment is actually next week, not tomorrow as she had previously thought. She reports ongoing issues with her breathing, and she is understandably worried that her pleural effusion might re- accumulate at home, and cause her problems. She confirms taking Lasix at home, sometimes bid. Exam Vital Signs (past 8 hours): - 12/28/21 07:51 12/28/21 08:00 12/28/21 12:00 Temperature 97.5 F L 97.4 F L Pulse Rate 97 H 98 H Respiratory Rate 16 18 Blood Pressure 118/54 L 106/50 L Pulse Oximetry 94 91 90 L 12/28/21 14:11 Temperature Pulse Rate Respiratory Rate Blood Pressure Pulse Oximetry 94 Oxygen Delivery Method Nasal Cannula Oxygen Flow Rate 4 Narrative Exam Narrative: Gen: laying in bed comfortably upon my entering the room, in no apparent, acute distress HEENT: normocephalic, atraumatic, conjunctiva clear, sclera non-icteric, oral mucosa pink and moist Neck: supple, full ROM, no JVD, trachea is midline Resp: diminished breath sounds bilaterally, more so on the right CV: RRR, no murmur or rubs Abd: soft, non-tender, normoactive bowel sounds Skin: no lesions or rashes, dry and intact Neuro: alert and oriented X 4 with no focal neurological deficits Extremities: palpable and equally steady radial and dorsalis pedis pulses bilaterally Psyche: normal mood and affect Objective Labs Result Diagrams: 12/28/21 05:08 12/28/21 05:08 Labs: Laboratory Results - last 24 hr 12/28/21 12/28/21 05:08 05:08 WBC 10.7 RBC 4.10 Hgb 12.6 Hct 37.7 MCV 91.9 MCH 30.7 MCHC 33.4 RDW 12.3 Plt Count 360 Neut % (Auto) 85.2 H Lymph % (Auto) 3.4 L Collin % (Auto) 10.3 Eos % (Auto) 0.5 L Baso % (Auto) 0.6 Neut # (Auto) 9100 H Lymph # (Auto) 400 L Collin # (Auto) 1100 H Eos # (Auto) 100 Baso # (Auto) 100 Sodium 128 L Potassium 3.9 Chloride 80 L Carbon Dioxide 49 H* BUN 15 Creatinine 0.45 L Estimated GFR > 60.0 BUN/Creatinine Ratio 33.3 H Glucose 110 Calcium 9.0 Magnesium 1.9 PFSH Medical History Chronic hypercapnic respiratory failure HX: breast cancer Hypothyroidism Pleural effusion Pulmonary hypertension Family History Mother Old age Father Pneumonia Social History household members: none Smoking Status: Former smoker alcohol intake: current Assessment & Plan Assessment & Plan narrative: Amanda Rivera is admitted for further evaluation and management of a right sided pleural effusion, suspected to be malignant. 1. Pleural effusion, worsening and present on admission * Underwent ultrasound guided thoracentesis on Dec 27, with 1400 cc removal 2. Pulmonary hypertension, chronic and present on admission * Continue home dose of sildenafil 20 mg po TID 3. Hypothyroidism, chronic and present on admission * Continue home dose of levothyroxine 88 mcg daily 4. Lower extremity swelling * She was administered IV Lasix in the emergency department and is now urinating quite a bit * Will start Lasix 20 mg bid VTE Prophylaxis: Lovenox 40 mg daily Time Spent With Patient Critical Care time: I spent a total of [] minutes of critical care time on this patient's care today; this time is exclusive of procedural time. Quality VTE Deep Vein Thrombosis/Pulmonary Embolism Present on Admission: No
[2021-12-28] MEDS: SODIUM CHLORIDE 0.9% FLUSH 10 ML IV (21:36)
[2021-12-29 04:00] VITALS: BP 113/53; PULSE 100; RESP 16; TEMP 36.1; O2SAT 92
[2021-12-29] MEDS: LEVOTHYROXINE 88 MCG TABLET PO (06:36)
--- NOTE | 2021-12-29 07:29 | PC.NURSE ---
alert, oriented. voices needs. 1pa FWW adls and transfers. desats w/ minimal exertion, recovers slowly. o2 5lpm via NC at rest. 78-82 desat w/ exertion. o2 increased to 10lpm at RT request, slowly recovered to 90's then popped up to 98%. decreased o2 to 5lpm and has been satting fine since then. above incident occured 2x thru the noc. patient seemed unbothered by above, states this happens at home frequently as well. HOB up at all times for comfort. call light w/in reach. frequent safety and room checks.
[2021-12-29 07:30] VITALS: BP 133/64; PULSE 95; RESP 20; TEMP 36.4; O2SAT 94
--- NOTE | 2021-12-29 07:58 | DI.RAD.S_ITS ---
PROCEDURE: XR CHEST 1V INDICATIONS: Right pleural effusion follow-up, concern for lung edema TECHNIQUE: One view of the chest was acquired. COMPARISON: [facility], CR, XR CHEST 1V, 12/26/2021, 16:57. [facility], CR, XR CHEST 1V, 12/27/2021, 8:32. FINDINGS: Surgical changes and devices: None. Lungs and pleura: Coarsened interstitial markings. Small to moderate right and trace left pleural effusions with adjacent atelectasis. No pneumothorax. Mediastinum: The cardiac silhouette is partially obscured. Bones and chest wall: No suspicious bony lesions. Overlying soft tissues appear unremarkable. IMPRESSION: No significant interval change. Dictated by: Catalino Narayan M.D. on 12/29/2021 at 8:59 Approved by: Catalino Narayan M.D. on 12/29/2021 at 9:01
--- NOTE | 2021-12-29 08:01 | PM.PN.1 ---
Subjective Subjective Interval history: Patient reports that her breathing is relatively unchanged. She does endorse good PO intake. She denies any issues with urination/BM's. She reports that she thinks she urinated quite a bit yesterday. Exam Vital Signs (past 8 hours): - 12/29/21 04:00 Temperature 97.0 F L Pulse Rate 100 H Respiratory Rate 16 Blood Pressure 113/53 L Pulse Oximetry 92 Oxygen Delivery Method Nasal Cannula Oxygen Flow Rate 5 Narrative Exam Narrative: Gen: laying in bed comfortably upon my entering the room, in no apparent, acute distress HEENT: no scleral icterus appreciated Neck: supple, full ROM, no JVD, trachea is midline Resp: diminished breath sounds bilaterally, more so on the right CV: RRR, no murmur or rubs Abd: soft, non-tender, non-distended, bowel sounds present Skin: no lesions or rashes, dry and intact Neuro: alert and oriented X 4 with no focal neurological deficits Extremities: palpable and equally steady radial and dorsalis pedis pulses bilaterally Psyche: normal mood and affect Objective Labs Result Diagrams: 12/28/21 05:08 12/28/21 05:08 [facility] Medical History Chronic hypercapnic respiratory failure HX: breast cancer Hypothyroidism Pleural effusion Pulmonary hypertension Family History Mother Old age Father Pneumonia Social History household members: none Smoking Status: Former smoker alcohol intake: current Assessment & Plan Assessment & Plan narrative: Amanda Rivera is admitted for further evaluation and management of a right sided pleural effusion, suspected to be malignant. 1. Acute on chronic hypoxic and hypercapnic respiratory failure, likely brought on by large right pleural effusion, worsening and present on admission Underwent ultrasound guided thoracentesis on Dec 27, with 1400 cc removal of bloody fluid Most likely to be malignancy-associated, possibly small cell lung cancer Requires up to 6 liters of oxygen at baseline, has oxygen at home 2. Pulmonary hypertension, chronic and present on admission Continue home dose of sildenafil 20 mg po tid 3. Hypothyroidism, chronic and present on admission Continue home dose of levothyroxine 88 mcg daily 4. Lower extremity swelling She was administered IV Lasix in the emergency department and is now urinating quite a bit Will start PO lasix 20 mg bid VTE Prophylaxis: Lovenox 40 mg daily Time Spent With Patient Critical Care time: I spent a total of [] minutes of critical care time on this patient's care today; this time is exclusive of procedural time. Quality VTE Deep Vein Thrombosis/Pulmonary Embolism Present on Admission: No
[2021-12-29 08:45] VITALS: O2SAT 93
[2021-12-29] MEDS: ENOXAPARIN 40 MG/0.4 ML SYRINGE SUBCUT (09:34)
[2021-12-29] MEDS: SILDENAFIL 20 MG TABLET PO (09:36)
[2021-12-29] MEDS: SODIUM CHLORIDE 0.9% FLUSH 10 ML IV (09:38)
[2021-12-29] MEDS: FUROSEMIDE 20 MG TABLET PO (09:38)
[2021-12-29 13:40] VITALS: BP 129/68; PULSE 101; RESP 22; TEMP 36.7; O2SAT 93
--- NOTE | 2021-12-29 15:32 | PM.PN.1 ---
Subjective Subjective Interval history: Patient reports feeling better this morning. She denies any acute complaints. She denies any events overnight. She reports that her breathing status is unchanged. She verifies that her oncology and pulmonology appointments are both next week. Exam Vital Signs (past 8 hours): - 12/29/21 08:45 12/29/21 13:40 Temperature 98.0 F Pulse Rate 101 H Respiratory Rate 22 Blood Pressure 129/68 Pulse Oximetry 93 93 Oxygen Delivery Method Nasal Cannula Oxygen Flow Rate 5 Narrative Exam Narrative: Gen: laying in bed comfortably upon my entering the room, in no apparent, acute distress HEENT: no scleral icterus appreciated Neck: supple, full ROM, no JVD, trachea is midline Resp: diminished breath sounds bilaterally, more so on the right CV: RRR, no murmur or rubs Abd: soft, non-tender, non-distended, bowel sounds present Skin: no lesions or rashes, dry and intact Neuro: alert and oriented Extremities: palpable and equally steady radial and dorsalis pedis pulses bilaterally Psyche: normal mood and affect Objective Labs Result Diagrams: 12/28/21 05:08 12/28/21 05:08 [facility] Medical History Chronic hypercapnic respiratory failure HX: breast cancer Hypothyroidism Pleural effusion Pulmonary hypertension Family History Mother Old age Father Pneumonia Social History household members: none Smoking Status: Former smoker alcohol intake: current Assessment & Plan Assessment & Plan narrative: Amanda Rivera is admitted for further evaluation and management of a right sided pleural effusion, suspected to be malignant. 1. Acute on chronic hypoxic and hypercapnic respiratory failure, likely brought on by large right pleural effusion, worsening and present on admission Underwent ultrasound guided thoracentesis on Dec 27, with 1400 cc removal of bloody fluid Most likely to be malignancy-associated, possibly small cell lung cancer Requires up to 6 liters of oxygen at baseline, has oxygen at home 2. Pulmonary hypertension, chronic and present on admission Continue home dose of sildenafil 20 mg po tid 3. Hypothyroidism, chronic and present on admission Continue home dose of levothyroxine 88 mcg daily 4. Lower extremity swelling She was administered IV Lasix in the emergency department and is now urinating quite a bit Will start PO lasix 20 mg bid VTE Prophylaxis: Lovenox 40 mg daily Time Spent With Patient Critical Care time: I spent a total of [] minutes of critical care time on this patient's care today; this time is exclusive of procedural time. Quality VTE Deep Vein Thrombosis/Pulmonary Embolism Present on Admission: No
--- NOTE | 2021-12-29 15:34 | P.DS_ITS ---
History of Present Illness History of Present Illness Chief complaint: dyspnea Narrative: Amnada Murphy is a 76-year-old female with a remote history of right-sided breast cancer in approximately 1996, COPD, hypothyroidism, and pulmonary hypertension presented to the emergency department today with a recurrent right sided pleural effusion.?She was seen in the ED on December 19 and opted to not be admitted or transferred, but was referred to outpatient thoracentesis the following day.? Initial cytology report indicated malignant cells.? Patient is scheduled to see Oncology on .? She is accompanied by her friend and DPOA who provides much of the history.? She has had increasing shortness of breath and swelling in her lower extremities.? She is on home O2 but they noted she was dropping sometimes 60-90% on her normal O2 while sitting on the couch.? She has had orthopnea.? Shortness of breath, d enying chest pain, fevers or chills, nausea or vomiting, .? No issues with bowel movements or urination.? She states she has had decreased fluid intake and eating.? She tales sildenafil, levothyroxine, Lasix 20 mg and potassium chloride.? She does follow with pulmonary rehab.? She endorses having had a colon polyp removal 12 years ago, she no longer smokes tobacco, no alcohol or illicit.? She lives independently and felt much better after her last thoracentesis.? She is accompanied by her friend, Lebron Mendoza who is also her DPOA. Chest x-ray done today was compared with CT scan 2 days ago.? Findings: Worsening of right pleural effusion and overlying consolidation.? Diffusely coa rsened interstitial markings in both lungs are similar.? Cardiomegaly is similar.? She is afebrile, blood pressure 140/63, heart rate 98, respiratory rate 22 oxygen saturation of 94% on 4 L sometimes increased demand to 6 L, she weighs 55 kg with a BMI of 21.5.? WBC is 11.3 with a left shift, neutrophils of 10,000, sodium 127, chloride 81, bicarb 47, creatinine 0.41, glucose 125, lact ate is normal, albumin 3.4, and procalcitonin ordered and is pending. Written by admitting provider. Discharge Providers Provider Date of admission: 12/26/21 21:45 Discharge Date: 12/29/21 Primary care physician: Elo Villeda PA-C Consults: 12/26/21 22:01 Consult to Physician Routine Comment: Consulting Provider: Cris Colon Reason for consultation: Malignant pleural effusion Has provider been notified: No Discharge provider: Carla Serna MD Summary Hospital Course Discharge Diagnosis: Amanda Rivera is admitted for further evaluation and management of a right sided pleural effusion, suspected to be malignant. This was drained of 1400 cc's of bloody fluid on December 27. Repeat CXR showed no re-accumulation of the pleural fluid. The likelihood of the pleural effusion re-accumulating is high. I spoke with the patient and her advocate about this. If this continues to recur, she would benefit from a Pleur-X catheter placement. She will continue Lasix at home, and we discussed fluid restriction, too. She has follow-up appointments with pulmonology and oncology next week. 1. Acute on chronic hypoxic and hypercapnic respiratory failure, likely brought on by large right pleural effusion, worsening and present on admission ? Underwent ultrasound guided thoracentesis on Dec 27, with 1400 cc removal of bloody fluid, and stable imaging follow-up ? Most likely to be malignancy-associated, possibly small cell lung cancer ? Requires up to 6 liters of oxygen at baseline, has oxygen at home 2. Pulmonary hypertension, chronic and present on admission ? Continue home dose of sildenafil 20 mg po tid 3. Hypothyroidism, chronic and present on admission ? Continue home dose of levothyroxine 88 mcg daily 4. Lower extremity swelling ? She was administered IV Lasix in the emergency department and is now urinating quite a bit ? Will start PO lasix 20 mg bid Exam Vital Signs (past 8 hours): - 12/29/21 08:45 12/29/21 13:40 Temperature 98.0 F Pulse Rate 101 H Respiratory Rate 22 Blood Pressure 129/68 Pulse Oximetry 93 93 Oxygen Delivery Method Nasal Cannula Oxygen Flow Rate 5 Objective Labs Result Diagrams: 12/28/21 05:08 12/28/21 05:08 [facility] Medical History Chronic hypercapnic respiratory failure HX: breast cancer Hypothyroidism Pleural effusion Pulmonary hypertension Family History Mother Old age Father Pneumonia Social History household members: none Smoking Status: Former smoker alcohol intake: current Discharge Assessment & Plan Assessment and Plan Assessment: Amanda Rivera is admitted for further evaluation and management of a right sided pleural effusion, suspected to be malignant. This was drained of 1400 cc's of bloody fluid on December 27. Repeat CXR showed no re-accumulation of the pleural fluid. The likelihood of the pleural effusion re-accumulating is high. I spoke with the patient and her advocate about this. If this continues to recur, she would benefit from a Pleur-X catheter placement. She will continue Lasix at home, and we discussed fluid restriction, too. She has follow-up appointments with pulmonology and oncology next week. 1. Acute on chronic hypoxic and hypercapnic respiratory failure, likely brought on by large right pleural effusion, worsening and present on admission ? Underwent ultrasound guided thoracentesis on Dec 27, with 1400 cc removal of bloody fluid, and stable imaging follow-up ? Most likely to be malignancy-associated, possibly small cell lung cancer ? Requires up to 6 liters of oxygen at baseline, has oxygen at home 2. Pulmonary hypertension, chronic and present on admission ? Continue home dose of sildenafil 20 mg po tid 3. Hypothyroidism, chronic and present on admission ? Continue home dose of levothyroxine 88 mcg daily 4. Lower extremity swelling ? She was administered IV Lasix in the emergency department and is now urinating quite a bit ? Will start PO lasix 20 mg bid Discharge Plan Discharge Plan Patient Disposition: Home Discharge orders & Medications Prescriptions: Continued furosemide [Lasix] 20 mg tablet 20 mg PO DAILY Qty: 3 0RF levothyroxine 88 mcg tablet 88 mcg PO DAILY 0RF potassium chloride 10 mEq tablet extended release 10 meq PO DAILY 0RF Label Comments: TAKE ONE TABLET BY MOUTH ONE TIME DAILY. TAKE WITH FOOD. sildenafil (pulm.hypertension) 20 mg tablet 20 mg PO TID 0RF Label Comments: TAKE ONE TABLET BY MOUTH THREE TIMES DAILY Follow up/Referrals: Elo Villeda PA-C [Primary Care Provider] - Discharge Data Primary Care Provider: Elo Villeda Quality VTE Deep Vein Thrombosis/Pulmonary Embolism Present on Admission: No
--- NOTE | 2021-12-29 15:44 | PC.NURSE ---
Addendum entered by Marugerite Quiroz R.N. 12/29/21 16:23: Pt given D/C instructions w/understanding Pt escorted by staff via W/C to waiting vehicle D/C in stable condition. Original Note: Pt having relatively uneventful day. Denies discomfort. Received D/C orders this afternoon. SL left hand D/C'd intact. Tele D/C'd Showing ST per ICU staff. Call light w/in reach.
== END 2021-12-29 16:23 | disposition home or self-care (01) | DRG 180 ==
LOC: ED 21:44 → AC 12-27 07:29
PROVIDERS: Emergency Medicine; Admitting Provider Nurse Practitioner Family; Emergency Provider Emergency Medicine; PCP Physician Assistant; Visit Provider Nurse Practitioner Family
DX: C34.91 Malignant neoplasm of unspecified part of right bronchus or lung (principal); J96.22 Acute and chronic respiratory failure with hypercapnia; J96.21 Acute and chronic respiratory failure with hypoxia; J91.0 Malignant pleural effusion; E87.1 Hypo-osmolality and hyponatremia; J44.9 Chronic obstructive pulmonary disease, unspecified; I27.20 Pulmonary hypertension, unspecified; R60.9 Edema, unspecified; E03.9 Hypothyroidism, unspecified; Z87.891 Personal history of nicotine dependence; Z99.81 Dependence on supplemental oxygen; Z20.822 Contact with and (suspected) exposure to COVID-19
CPT/HCPCS: 32555; 36415; 71045; 71275; 80048; 80053; 81003; 82550; 83605; 83690; 83735; 83880; 84145; 84484; 85025; 87635; 93005; 93010; 94760; 94762; 96374; 99284; 99285; C9803; J1650; J1940; Q9967

== ENCOUNTER 2022-01-03 10:04 | Emergency (ER) | payer OTHER, SELFPAY ==
[2021-12-26 21:51] VITALS: BMI 21.4
[2022-01-03] VITALS (23 sets, daily range): BP systolic 91–151; BP diastolic 51–71; PULSE 89–107; RESP 10–27; TEMP 29.8–36.9; O2SAT 88–98; BMI 20.1
--- NOTE | 2022-01-03 | DI.RAD.S_ITS ---
PROCEDURE: XR CHEST 1V INDICATIONS: sob TECHNIQUE: One view of the chest was acquired. COMPARISON: [facility], CT, CT ANGIO CHEST PE PROTOCOL, 12/24/2021, 15:44. [facility], CR, XR CHEST 1V, 01/03/2022, 10:12. FINDINGS: Surgical changes and devices: None. Lungs and pleura: Interval decreased right pleural fluid. No right pneumothorax, post thoracentesis. Bilateral coarsened interstitial markings, consistent with chronic interstitial change Mediastinum: No widening of the superior mediastinum. Heart size is normal. Bones and chest wall: No suspicious bony lesions. Overlying soft tissues appear unremarkable. IMPRESSION: No right pneumothorax, post thoracentesis. Dictated by: Catalino Narayan M.D. on 01/03/2022 at 14:07 Approved by: Catalino Narayan M.D. on 01/03/2022 at 14:09
--- NOTE | 2022-01-03 10:13 | DI.RAD.S_ITS ---
PROCEDURE: XR CHEST 1V INDICATIONS: chest pain TECHNIQUE: One view of the chest was acquired. COMPARISON: [facility], CR, XR CHEST 1V, 12/26/2021, 16:57. [facility], CT, CT ANGIO CHEST PE PROTOCOL, 12/24/2021, 15:44. [facility], CR, XR CHEST 1V, 12/29/2021, 8:12. FINDINGS: Surgical changes and devices: None. Lungs and pleura: Chronic bilateral interstitial reticular opacities are redemonstrated. A moderate right pleural effusion has increased compared to the prior exam with increased atelectasis or consolidation of the adjacent right lung. Right-sided pleural thickening is again noted. No definite left-sided pleural effusion is seen. No pneumothorax. Mediastinum: Mediastinal contours appear normal. Heart size is normal. Bones and chest wall: No suspicious bony lesions. Overlying soft tissues appear unremarkable. IMPRESSION: Increased moderate right pleural effusion with right basilar atelectasis or consolidation. Chronic interstitial changes. Dictated by: Jorge Soliz M.D. on 01/03/2022 at 10:34 Approved by: Jorge Soliz M.D. on 01/03/2022 at 10:37
[2022-01-03 10:53] LABS: INR 1.1 (0.9-1.3); Prothrombin Time 12.6 SECONDS (10.1-12.7)
[2022-01-03 10:56] LABS: PTT Partial Thromboplastin Tim 30 SECONDS (26.4-36.2)
[2022-01-03 10:58] LABS: Alanine Aminotransferase 16 IU/L (<35); Albumin 3.1 g/dL (3.5-5.0); Albumin Globulin Ratio 0.8 (1.0-2.8); Alkaline Phosphatase 78 U/L (38-126); Aspartate Aminotransferase 29 IU/L (14-36); BUN Creatinine Ratio 92.7 (6-22); Bilirubin Total 0.8 mg/dL (0.2-1.3); Blood Urea Nitrogen 38 mg/dL (7-17); Calcium 9.5 mg/dL (8.4-10.2); Chloride 82 mmol/L (98-107); Creatine Kinase < 20 U/L (30-135); Estimated Glomerular Filt Rate > 60.0 mL/min (>60); Globulin 3.7 g/dL (1.7-4.1); Glucose 130 mg/dL (80-110); HEMOLYSIS < 15 (0-50); Lipase 51 U/L (23-300); Potassium 4.9 mmol/L (3.4-5.1); Sodium 134 mmol/L (137-145); Total Protein 6.8 g/dL (6.3-8.2)
--- NOTE | 2022-01-03 10:59 | ED.GENADULT ---
HPI - General Adult General Chief complaint: Weakness Stated complaint: Weakness Time Seen by Provider: 01/03/22 10:08 Source: patient and EMS Mode of arrival: EMS History of Present Illness HPI narrative: Patient is a 76-year-old female. A presumed history of lung cancer however she does not have a definitive diagnosis of this. Is scheduled to see Oncology for the 1st time tomorrow. Has had 2 prior right-sided thoracentesis secondary to pleural effusions. Is on home oxygen at 6 L at all times. Is here with her qc chemist for evaluation of failure to thrive, fatigue, weakness and inability to stand and walk for the past couple days. No fevers. She has had decreased oral intake recently. At baseline she is normally able to get up and walk with a walker but has been unable to do so over the past couple days. She is having shortness of breath but does not necessarily think that it is much worse than her baseline. She has not had to increase her oxygen. No abdominal pain but does have a decreased appetite. No lower extremity swelling. No change in bowel habits. No nausea vomiting. No chest pain. Related Data Home Medications Medication Instructions Recorded Confirmed levothyroxine 88 mcg tablet 88 mcg PO DAILY 12/26/21 12/26/21 potassium chloride 10 mEq 10 meq PO DAILY 12/26/21 12/26/21 tablet,extended release sildenafil (pulm.hypertension) 20 20 mg PO TID 12/26/21 12/26/21 mg tablet Previous Rx's Medication Instructions Recorded furosemide 20 mg tablet (Lasix) 20 mg PO DAILY #3 tab 12/19/21 Allergies Allergy/AdvReac Type Severity Reaction Status Date / Time No Known Drug Allergies Allergy Verified 01/03/22 10:14 Review of Systems Constitutional Constitutional: Denies fever(s) and Denies headache(s) ENT Ears, Nose, Mouth, and Throat: Denies headache(s) Cardiovascular Cardiovascular: Reports as per HPI and Reports system reviewed and no additional complaints, except as documented Respiratory Respiratory: Reports as per HPI and Reports system reviewed and no additional complaints, except as documented Gastrointestinal Gastrointestinal: Reports as per HPI and Reports system reviewed and no additional complaints, except as documented Musculoskeletal Musculoskeletal: Reports system reviewed and no additional complaints, except as documented Integumentary/Breasts Skin/Breast: Reports system reviewed and no additional complaints, except as documented Neurologic Neurologic: Denies headache(s) Hematologic/Lymphatic On Anticoagulants: No Allergic/Immunologic Allergic/Immunologic: Reports system reviewed and no additional complaints, except as documented Patient History Medical History Chronic hypercapnic respiratory failure HX: breast cancer Hypothyroidism Pleural effusion Pulmonary hypertension Family History Mother Old age Father Pneumonia Social History household members: none Smoking Status: Former smoker alcohol intake: current Smoking Status: Former smoker alcohol intake frequency: holidays/special occasions only Substance Use Type: does not use Exam Initial Vital Signs Initial Vital Signs: Vital Signs Temperature 97.8 F 01/03/22 10:00 Pulse Rate 95 H 01/03/22 10:00 Respiratory Rate 20 01/03/22 10:00 Blood Pressure 136/62 01/03/22 10:00 Pulse Oximetry 98 01/03/22 10:00 Const General: frail appearing, ill appearing and lethargic HENMT Head: normal to inspection and normocephalic Chest Chest: normal inspection of the chest Resp Effort & Inspection: labored, no respiratory distress and no retractions Cardio Rate: regular rate Rhythm: regular rhythm GI Inspection: normal to inspection and no edema Palpation: soft Neuro Other: Somewhat somnolent but easily arousable and alert oriented x3. Extrem Other: No lower extremity edema Psych Appearance: grossly normal and disheveled Scores GCS Silex coma scale eye opening: Spontaneous Felicitas coma scale verbal response: Orientated Felicitas coma scale motor response: Obey commands Silex coma scale total score: 15 Course Orders Ordered: ED Orders 01/03/22 10:13 XR chest 1V Stat EKG-12 Lead Stat 01/03/22 10:38 BNP [NT-proBNP (BNP-Adult 18+)] Stat Complete Blood Count AUTO DIFF Stat Comprehensive Metabolic Panel Stat Lipase Stat Magnesium Stat Partial Thromboplastin Time Stat Prothrombin Time INR Stat Troponin & CK Cardiac Panel Stat 01/03/22 11:00 US thoracentesis Stat 01/03/22 11:26 COVID19 -Nasal swab/Pre-Proc Stat 01/03/22 11:55 ABG [Arterial Blood Gas] Stat 01/03/22 14:16 Consult to [employer]OR - [employer] Fabricator Stat 01/03/22 14:44 BiPAP Ventilatory Support RT PROTOCOL 01/03/22 15:14 ABG [Arterial Blood Gas] Stat 01/03/22 15:57 Lactate (Lactic Acid) Stat Vital Signs Vital signs: Vital Signs - 8 hr 01/03/22 11:00 01/03/22 11:30 01/03/22 12:00 Temperature Pulse Rate 101 H 101 H 101 H Respiratory Rate 19 Blood Pressure 143/65 H 128/60 Pulse Oximetry 95 95 95 01/03/22 12:49 01/03/22 13:00 01/03/22 14:22 Temperature 98.2 F Pulse Rate 105 H 107 H 101 H Respiratory Rate 18 27 H 19 Blood Pressure 135/64 151/71 H 113/56 L Pulse Oximetry 96 95 90 L 01/03/22 15:19 01/03/22 15:39 01/03/22 15:45 Temperature 97.0 F L Pulse Rate 95 H 91 H 91 H Respiratory Rate 21 20 Blood Pressure 100/54 L 91/55 L Pulse Oximetry 93 88 L 89 L 01/03/22 16:00 01/03/22 16:09 01/03/22 16:30 Temperature Pulse Rate 89 89 89 Respiratory Rate 22 18 20 Blood Pressure 101/56 L 92/51 L Pulse Oximetry 89 L 92 92 01/03/22 16:45 01/03/22 17:00 01/03/22 17:15 Temperature Pulse Rate 91 H 92 H 94 H Respiratory Rate 19 23 20 Blood Pressure 97/51 L 103/57 L 113/56 L Pulse Oximetry 92 94 92 01/03/22 17:30 01/03/22 17:45 Temperature 98.4 F Pulse Rate 100 H 98 H Respiratory Rate 20 22 Blood Pressure 116/58 L 112/56 L Pulse Oximetry 92 93 Medical Decision Making Medical Records Medical records reviewed: Yes I reviewed the patient's medical records. Lab Data Lab results reviewed: Yes I reviewed the patient's lab results. Result diagrams: 01/03/22 10:38 01/03/22 10:38 Labs: Lab Results 01/03/22 01/03/22 01/03/22 Range/Units 10:38 10:38 10:38 WBC 16.3 H (4.5-11.0) X10^3/uL RBC 4.09 (4.0-5.2) X10^6/uL Hgb 12.4 (12.0-16.0) g/dL Hct 38.6 (36-46) % MCV 94.5 (80-100) fL MCH 30.3 (26-34) PG MCHC 32.0 (30-36) % RDW 12.3 (11.6-14.8) % Plt Count 378 (150-400) X10^3/uL Neut % (Auto) 91.8 H (50-75) % Lymph % (Auto) 0.8 L (25-40) % [place] % (Auto) 7.2 (3-14) % Eos % (Auto) 0.0 L (2-4) % Baso % (Auto) 0.2 (0-2) % Neut # (Auto) 27362 H (9794-8815) /uL Lymph # (Auto) 100 L (7306-3159) /uL [place] # (Auto) 1200 H (0-900) /uL Eos # (Auto) 0 (0-450) /uL Baso # (Auto) 0 (0-100) /uL PT 12.6 (10.1-12.7) SECONDS INR 1.1 (0.9-1.3) APTT 30 (26.4-36.2) SECONDS ABG pH (7.35-7.45) ABG pCO2 (35-45) mmHg ABG pO2 (80-100) mmHg ABG HCO3 (22-26) mmol/L ABG Total CO2 (21-31) mmol/L ABG O2 Saturation (95-100) % ABG Base Excess (-2-2) mmol/L FiO2 Sodium 134 L (137-145) mmol/L Potassium 4.9 (3.4-5.1) mmol/L Chloride 82 L (98-107) mmol/L Carbon Dioxide 54 H* (22-32) mmol/L BUN 38 H (7-17) mg/dL Creatinine 0.41 L (0.52-1.04) mg/dL Estimated GFR > 60.0 (>60) mL/min BUN/Creatinine Ratio 92.7 H (6-22) Glucose 130 H (80-110) mg/dL Lactate (0.7-2.1) mmol/L Calcium 9.5 (8.4-10.2) mg/dL Magnesium 2.0 (1.6-2.3) mg/dL Total Bilirubin 0.8 (0.2-1.3) mg/dL AST 29 (14-36) IU/L ALT 16 (<35) IU/L Alkaline Phosphatase 78 (38-126) U/L Total Creatine Kinase < 20 L (30-135) U/L CK-MB (CK-2) TNP CK-MB (CK-2) Rel Index TNP Troponin I < 0.012 (0.01-0.034) ng/mL NT-Pro-B Natriuret Pep (<450) pg/mL Total Protein 6.8 (6.3-8.2) g/dL Albumin 3.1 L (3.5-5.0) g/dL Globulin 3.7 (1.7-4.1) g/dL Albumin/Globulin Ratio 0.8 L (1.0-2.8) Lipase 51 (23-300) U/L SARS-CoV-2 (PCR) (Negative) 01/03/22 01/03/22 01/03/22 Range/Units 10:38 11:26 11:55 WBC (4.5-11.0) X10^3/uL RBC (4.0-5.2) X10^6/uL Hgb (12.0-16.0) g/dL Hct (36-46) % MCV (80-100) fL MCH (26-34) PG MCHC (30-36) % RDW (11.6-14.8) % Plt Count (150-400) X10^3/uL Neut % (Auto) (50-75) % Lymph % (Auto) (25-40) % [place] % (Auto) (3-14) % Eos % (Auto) (2-4) % Baso % (Auto) (0-2) % Neut # (Auto) (3215-9049) /uL Lymph # (Auto) (2841-2508) /uL [place] # (Auto) (0-900) /uL Eos # (Auto) (0-450) /uL Baso # (Auto) (0-100) /uL PT (10.1-12.7) SECONDS INR (0.9-1.3) APTT (26.4-36.2) SECONDS ABG pH 7.28 L* (7.35-7.45) ABG pCO2 121.0 H* (35-45) mmHg ABG pO2 117 H (80-100) mmHg ABG HCO3 57 H (22-26) mmol/L ABG Total CO2 > 50 H (21-31) mmol/L ABG O2 Saturation 97 (95-100) % ABG Base Excess > 30.0 H (-2-2) mmol/L FiO2 46 Sodium (137-145) mmol/L Potassium (3.4-5.1) mmol/L Chloride (98-107) mmol/L Carbon Dioxide (22-32) mmol/L BUN (7-17) mg/dL Creatinine (0.52-1.04) mg/dL Estimated GFR (>60) mL/min BUN/Creatinine Ratio (6-22) Glucose (80-110) mg/dL Lactate (0.7-2.1) mmol/L Calcium (8.4-10.2) mg/dL Magnesium (1.6-2.3) mg/dL Total Bilirubin (0.2-1.3) mg/dL AST (14-36) IU/L ALT (<35) IU/L Alkaline Phosphatase (38-126) U/L Total Creatine Kinase (30-135) U/L CK-MB (CK-2) CK-MB (CK-2) Rel Index Troponin I (0.01-0.034) ng/mL NT-Pro-B Natriuret Pep 426 (<450) pg/mL Total Protein (6.3-8.2) g/dL Albumin (3.5-5.0) g/dL Globulin (1.7-4.1) g/dL Albumin/Globulin Ratio (1.0-2.8) Lipase (23-300) U/L SARS-CoV-2 (PCR) Negative (Negative) 01/03/22 01/03/22 Range/Units 15:14 15:57 WBC (4.5-11.0) X10^3/uL RBC (4.0-5.2) X10^6/uL Hgb (12.0-16.0) g/dL Hct (36-46) % MCV (80-100) fL MCH (26-34) PG MCHC (30-36) % RDW (11.6-14.8) % Plt Count (150-400) X10^3/uL Neut % (Auto) (50-75) % Lymph % (Auto) (25-40) % [place] % (Auto) (3-14) % Eos % (Auto) (2-4) % Baso % (Auto) (0-2) % Neut # (Auto) (2068-9079) /uL Lymph # (Auto) (2289-7995) /uL [place] # (Auto) (0-900) /uL Eos # (Auto) (0-450) /uL Baso # (Auto) (0-100) /uL PT (10.1-12.7) SECONDS INR (0.9-1.3) APTT (26.4-36.2) SECONDS ABG pH 7.36 (7.35-7.45) ABG pCO2 100.7 H* (35-45) mmHg ABG pO2 70 L (80-100) mmHg ABG HCO3 57 H (22-26) mmol/L ABG Total CO2 50 H (21-31) mmol/L ABG O2 Saturation 91 L (95-100) % ABG Base Excess 30.0 H (-2-2) mmol/L FiO2 40 Sodium (137-145) mmol/L Potassium (3.4-5.1) mmol/L Chloride (98-107) mmol/L Carbon Dioxide (22-32) mmol/L BUN (7-17) mg/dL Creatinine (0.52-1.04) mg/dL Estimated GFR (>60) mL/min BUN/Creatinine Ratio (6-22) Glucose (80-110) mg/dL Lactate 2.3 H (0.7-2.1) mmol/L Calcium (8.4-10.2) mg/dL Magnesium (1.6-2.3) mg/dL Total Bilirubin (0.2-1.3) mg/dL AST (14-36) IU/L ALT (<35) IU/L Alkaline Phosphatase (38-126) U/L Total Creatine Kinase (30-135) U/L CK-MB (CK-2) CK-MB (CK-2) Rel Index Troponin I (0.01-0.034) ng/mL NT-Pro-B Natriuret Pep (<450) pg/mL Total Protein (6.3-8.2) g/dL Albumin (3.5-5.0) g/dL Globulin (1.7-4.1) g/dL Albumin/Globulin Ratio (1.0-2.8) Lipase (23-300) U/L SARS-CoV-2 (PCR) (Negative) Imaging Data Chest x-ray: Radiologist's Impression: [address] [address] XRay Report Signed Patient: Amanda Murphy MR#: [id number] : 1945 Acct:[id number] Age/Sex: 76 / F Date of Service: 01/03/22 Loc: ED Accession Number: [id number] ?? Procedure: XR chest 1V Ordering Provider: Jason Keita D.O. PROCEDURE:? XR CHEST 1V ? INDICATIONS:? chest pain ? TECHNIQUE:? One view of the chest was acquired.? ? COMPARISON:? [facility], CR, XR CHEST 1V, 12/26/2021, 16:57.? [facility], CT, CT ANGIO CHEST PE PROTOCOL, 12/24/2021, 15:44.? [facility], CR, XR CHEST 1V, 12/29/2021, 8:12. ? FINDINGS:? ? Surgical changes and devices:? None.? ? Lungs and pleura:? Chronic bilateral interstitial reticular opacities are redemonstrated. ?A moderate right pleural effusion has increased compared to the prior exam with increased atelectasis or consolidation of the adjacent right lung.? Right-sided pleural thickening is again noted.? No definite left-sided pleural effusion is seen.? No pneumothorax. ? Mediastinum:? Mediastinal contours appear normal.? Heart size is normal.? ? Bones and chest wall:? No suspicious bony lesions.? Overlying soft tissues appear unremarkable.? ? IMPRESSION:? Increased moderate right pleural effusion with right basilar atelectasis or consolidation.? Chronic interstitial changes. ? ? Dictated by: Jorge Soliz M.D. on 01/03/2022 at 10:34 ? ? Approved by: Jorge Soliz M.D. on 01/03/2022 at 10:37?? Post thoracentesis: Radiologist's Impression: [address] [address] XRay Report Signed Patient: Amanda Murphy MR#: [id number] : 1945 Acct:[id number] Age/Sex: 76 / F Date of Service: 01/03/22 Loc: ED Accession Number: [id number] ?? Procedure: XR chest 1V Ordering Provider: Jason Keita D.O. PROCEDURE:? XR CHEST 1V ? INDICATIONS:? sob ? TECHNIQUE:? One view of the chest was acquired.? ? COMPARISON:? [facility], CT, CT ANGIO CHEST PE PROTOCOL, 12/24/2021, 15:44.? [facility], CR, XR CHEST 1V, 01/03/2022, 10:12. ? FINDINGS:? ? Surgical changes and devices:? None.? ? Lungs and pleura:? Interval decreased right pleural fluid.? No right pneumothorax, post thoracentesis. Bilateral coarsened interstitial markings, consistent with chronic interstitial change ? Mediastinum:? No widening of the superior mediastinum.? Heart size is normal.? ? Bones and chest wall:? No suspicious bony lesions.? Overlying soft tissues appear unremarkable.? ? IMPRESSION:? No right pneumothorax, post thoracentesis. ? ? Dictated by: Catalino Narayan M.D. on 01/03/2022 at 14:07 ? ? Approved by: Catalino Narayan M.D. on 01/03/2022 at 14:09? Ultrasound thoracentesis: Radiologist's Impression: [address] [address] Ultrasound Report Signed Patient: Amanda Murphy MR#: [id number] : 1945 Acct:[id number] Age/Sex: 76 / F Date of Service: 01/03/22 Loc: ED Accession Number: [id number] ?? Procedure: US thoracentesis Ordering Provider: Jason Keita D.O. PROCEDURE:? US THORACENTESIS ? INDICATIONS:? RIGHT PLEURAL EFFUSION ? TECHNIQUE:? The indications, alternatives, benefits, risks, and complications of the procedure were explained to the patient.? Written informed consent was obtained and placed in the chart. ?The chest was examined sonographically, and an appropriate site was chosen for thoracentesis.? The skin was prepared and draped in the usual sterile fashion, and 1% lidocaine was infiltrated from the skin down through the pleural surface.? A 19-gauge catheter-covered needle was then introduced into the pleural space, the catheter was advanced and the needle was withdrawn, and thereafter pleural fluid was aspirated.? The catheter was then removed and a dressing was applied.? ? COMPARISON:? [facility], , THORACENTESIS, 12/27/2021, 8:14. FINDINGS:? Access site:? Right hemithorax.? Needle:? One-Step centesis catheter with introducer needle.? Fluid volume and description:? 1.5 L Fluid sent for diagnostic testing:? Cytology Medications:? 1% lidocaine for local anaesthesia.? Complications:? None; post-procedural chest radiograph is pending to assess for pneumothorax.? ? IMPRESSION:? Successful ultrasound-guided thoracentesis.? ? ? Dictated by: Catalino Narayan M.D. on 01/03/2022 at 14:33 ? ? Approved by: Catalino Narayan M.D. on 01/03/2022 at 14:35?? ECG Data Attestation: I personally reviewed and interpreted this ECG as follows: Interpretation: Sinus tachycardia Ventricular rate 106 Normal axis Normal QRS No ST T wave changes MDM Narrative Medical decision making narrative: Patient has presumed lung cancer based on prior pleural fluid cytology which shows malignant cells. She is scheduled to see Oncology tomorrow. She is yet to see Oncology. She is not currently undergoing any treatment. She arrives today for 3 days of progressive fatigue and weakness. She is on oxygen at home at 6 L. She has not had much to eat over the past couple days. No fevers. Essentially failure to thrive. She has a recurrent pleural effusion on the right. Ultrasound-guided thoracentesis performed with 1.5 L of fluid. Her oncologist that she is scheduled to visit with tomorrow asked that we repeat cytology so those were ordered. They are pending at the time of transfer. Patient did have an ABG performed which showed respiratory acidosis with a pCO2 of 121 and a pH of 7.2. She was placed on BiPAP. After 1 hour with pressures of 16/6 and 40% FiO2 and respiratory rate of 10 the PCO to improved to 100 and pH improved to 7.3. No antibiotics administered. Given the need for 3 thoracentesis in approximately 2 weeks internal medicine this facility past that transfer be sought for concerns of potentially needing catheter placed. I discussed the case with Amalia farmer with Dr. Garcia accepting provider. Patient is currently stable for transfer. We will transfer her on CPAP/BiPAP. Patient's qc chemist bedside was informed and she expressed understanding and agreement. Discharge Plan Departure Patient Disposition: [facility] Clinical Impression: Lung cancer, Pleural effusion, Hypoxia, Hypercarbia Prescriptions: No Action furosemide [Lasix] 20 mg tablet 20 mg PO DAILY Qty: 3 0RF levothyroxine 88 mcg tablet 88 mcg PO DAILY 0RF potassium chloride 10 mEq tablet extended release 10 meq PO DAILY 0RF Label Comments: TAKE ONE TABLET BY MOUTH ONE TIME DAILY. TAKE WITH FOOD. sildenafil (pulm.hypertension) 20 mg tablet 20 mg PO TID 0RF Label Comments: TAKE ONE TABLET BY MOUTH THREE TIMES DAILY Referrals: Elo Villeda PA-C [Primary Care Provider] -
--- NOTE | 2022-01-03 11:00 | DI.US.S_ITS ---
PROCEDURE: US THORACENTESIS INDICATIONS: RIGHT PLEURAL EFFUSION TECHNIQUE: The indications, alternatives, benefits, risks, and complications of the procedure were explained to the patient. Written informed consent was obtained and placed in the chart. The chest was examined sonographically, and an appropriate site was chosen for thoracentesis. The skin was prepared and draped in the usual sterile fashion, and 1% lidocaine was infiltrated from the skin down through the pleural surface. A 19-gauge catheter-covered needle was then introduced into the pleural space, the catheter was advanced and the needle was withdrawn, and thereafter pleural fluid was aspirated. The catheter was then removed and a dressing was applied. COMPARISON: [facility], THORACENTESIS, 12/27/2021, 8:14. FINDINGS: Access site: Right hemithorax. Needle: One-Step centesis catheter with introducer needle. Fluid volume and description: 1.5 L Fluid sent for diagnostic testing: Cytology Medications: 1% lidocaine for local anaesthesia. Complications: None; post-procedural chest radiograph is pending to assess for pneumothorax. IMPRESSION: Successful ultrasound-guided thoracentesis. Dictated by: Catalino Narayan M.D. on 01/03/2022 at 14:33 Approved by: Catalino Narayan M.D. on 01/03/2022 at 14:35
[2022-01-03 11:02] LABS: Add Manual Diff / Slide Review NO; Basophils Absolute Auto 0 /uL (0-100); Basophils Percent Auto 0.2 % (0-2); Eosinophils Absolute Auto 0 /uL (0-450); Hematocrit 38.6 % (36-46); Hemoglobin 12.4 g/dL (12.0-16.0); Lymphocytes Absolute Auto 100 /uL (1100-4500); Lymphocytes Percent Auto 0.8 % (25-40); Mean Corpuscular Hemoglobin 30.3 PG (26-34); Mean Corpuscular Volume 94.5 fL (80-100); Monocytes Absolute Auto 1200 /uL (0-900); Monocytes Percent Auto 7.2 % (3-14); Neutrophils Absolute Auto 15000 /uL (1500-7000); Neutrophils Percent Auto 91.8 % (50-75); Platelet Count 378 X10^3/uL (150-400); Red Blood Cell Count 4.09 X10^6/uL (4.0-5.2); Red Cell Distribution Width 12.3 % (11.6-14.8); White Blood Cell Count 16.3 X10^3/uL (4.5-11.0)
[2022-01-03 11:07] LABS: Carbon Dioxide 54 mmol/L (22-32)
--- NOTE | 2022-01-03 11:07 | PATH_ITS ---
Note [facility] Accession Number: [id number] TESTS RESULT FLAG UNITS REF RANGE LAB Clinician Provided Cytology Information No. of containers..01 Other (Miscellaneous) Source: PLEURAL FLUID DIAGNOSIS: 01 PLEURAL FLUID NEGATIVE FOR MALIGNANT CELLS. THIS INTERPRETATION INCLUDES EVALUATION OF A CELL BLOCK. Pathologist ICD10: J90 Signed out by: Kamilla Tompkins MD, Pathologist NPI- [id number] Performed by: Kal Jordan, Supervisor Alteration Workroom ([facility]) Gross description: 65 CC, PINK, CLOUDY /LCS 01/04/2022 0358 Local FLAG LEGEND: L-Low Normal,H-High Normal,LL-Alert Low,HH-Alert High <-Panic Low,>-Panic High,A-Abnormal,AA-Critical Abnormal Performed at: 01 =Z [facility] [address] [place] [address] [address], [place] [address] Efrain Mejia MD, Performed at: 01 [facility] [address], [place], [place] [id number] MD Efrain Mejia MD Phone: [phone]
[2022-01-03 11:09] LABS: Troponin I < 0.012 ng/mL (0.01-0.034)
[2022-01-03 11:48] LABS: COVID19 -Nasal RAPID Negative (Negative)
[2022-01-03 12:38] LABS: pH ABG 7.28 (7.35-7.45)
[2022-01-03 12:39] LABS: Base Excess ABG > 30.0 mmol/L (-2-2); HCO3 ABG 57 mmol/L (22-26); Oxygen Saturation ABG 97 % (95-100); PO2 ABG 117 mmHg (80-100); TCO2 ABG > 50 mmol/L (21-31)
[2022-01-03 14:29] LABS: NT-proBNP (BNP-Adult 18+) 426 pg/mL (<450)
--- NOTE | 2022-01-03 15:15 | PC.NURSE ---
This RN left a telephone message for the pt's brother who is listed as next-of-kin He Montgomery @ [phone]. Pt has a caregiver in the room with her, the caregiver states she is not the POA.
[2022-01-03 15:33] LABS: pH ABG 7.36 (7.35-7.45)
[2022-01-03 15:35] LABS: Fractionated Inspired Oxygen 40; HCO3 ABG 57 mmol/L (22-26); Oxygen Saturation ABG 91 % (95-100); PO2 ABG 70 mmHg (80-100)
[2022-01-03 16:19] LABS: Lactate (Lactic Acid) 2.3 mmol/L (0.7-2.1)
--- NOTE | 2022-01-03 17:36 | PC.NURSE ---
This RN spoke to pt's brother He ([phone] or [phone]) re: pt's status. Brother is next of kin but understands that youth career specialist might be the POA ... caregiver is Lebron Mendoza [phone]. Report given to [employer] chain sales representative Leno @ [phone]
--- NOTE | 2022-01-03 17:44 | PC.NURSE ---
Pt placed on bi-pap at 1430 due to CO2 retention.
[2022-01-03 18:00] LABS: Reflexed Lactate in 2 Hours Y
[2022-01-04 08:27] LABS: PCO2 ABG 100.7 mmHg (35-45)
[2022-01-04 08:28] LABS: Base Excess ABG > 30.0 mmol/L (-2-2); TCO2 ABG > 50 mmol/L (21-31)
[2022-01-04 08:37] LABS: Fractionated Inspired Oxygen 44
== END 2022-01-03 17:48 | disposition short-term general hospital (02) ==
PROVIDERS: Emergency Provider Emergency Medicine; PCP Physician Assistant
DX: C34.90 Malignant neoplasm of unspecified part of unspecified bronchus or lung (principal); J91.0 Malignant pleural effusion; R09.02 Hypoxemia; R06.89 Other abnormalities of breathing; R00.0 Tachycardia, unspecified; Z20.822 Contact with and (suspected) exposure to COVID-19; Z87.891 Personal history of nicotine dependence
CPT/HCPCS: 32555; 36415; 36600; 71045; 80053; 82550; 82805; 83605; 83690; 83735; 83880; 84484; 85025; 85610; 85730; 87635; 93005; 94660; 99285; C9803